=== PATIENT | female | born 1970 | race African-American/Black ===

== ENCOUNTER 2018-01-03 18:12 | Emergency (ER) | payer OTHER ==
[2018-01-03 18:21] VITALS: BP 121/80; PULSE 99; TEMP 97.3; BMI 33.6
--- NOTE | 2018-01-03 18:21 | PDOC ---
Rapid Medical Evaluation Chief Complaint: Rash Medical Evaluation: Allergies Allergy/AdvReac Type Severity Reaction Status Date / Time No Known Allergies Allergy Verified 01/03/18 18:15 01/03/18 18:20 The patient presents with a chief complaint of: buttock irritation due to abscesses I have performed a brief in-person evaluation of this patient; Pertinent physical exam findings: ambulatory, in no respiratory distress I have ordered the following: abcess, no orders. The patient will proceed to the ED for further evaluation.
--- NOTE | 2018-01-03 19:05 | PDOC ---
History of Present Illness - General Chief Complaint: Rash Stated Complaint: RASH Time Seen by Provider: 01/03/18 18:53 History Source: Patient Exam Limitations: No Limitations - History of Present Illness Initial Comments: 01/03/18 18:54 Patient is a [obese 47-year-old female who presents with painful lesions to right lower buttock. Patient reports one week ago she went to the gym and sat on the toilet without covering it also purchased a pair of pants that she did not wash prior to wearing. Does not have a history of herpes. Painful area started several days after these episodes. ] Past Medical History: [Denies]. Allergies: No known allergies Medications: [None] Family History: Non-contributory Social History: Denies smoking, alcohol use, or IVDU Review of Systems GENERAL/CONSTITUTIONAL: [No fever or chills. No weakness. No weight change.] HEAD, EYES, EARS, NOSE AND THROAT: [No change in vision. No ear pain or discharge. No sore throat. ] CARDIOVASCULAR: [No chest pain or shortness of breath.] RESPIRATORY: [No cough, wheezing, or hemoptysis.] GASTROINTESTINAL: [No nausea, vomiting, diarrhea or constipation. No rectal bleeding.] GENITOURINARY: [No dysuria, frequency, or change in urination.] MUSCULOSKELETAL: [No joint or muscle swelling or pain. No neck or back pain.] SKIN AND BREASTS: [No rash or easy bruising.] NEUROLOGIC: [No headache, vertigo, loss of consciousness, or loss of sensation.] PSYCHIATRIC: [No depression or anxiety.] ENDOCRINE: [No increased thirst. No abnormal weight change.] HEMATOLOGIC/LYMPHATIC: [No anemia, easy bleeding, or history of blood clots.] ALLERGIC/IMMUNOLOGIC: [No hives or skin allergy. No latex allergy.] Physical Exam: GENERAL: [The patient is awake, alert, and fully oriented, in no acute distress. ] EYES: [Pupils equal, round and reactive to light, extraocular movements intact, sclera anicteric, conjunctiva clear.] ENT: [Ears normal, nares patent, oropharynx clear without exudates. Moist mucous membranes. No uvula deviation] NECK: [Normal range of motion, supple without lymphadenopathy, JVD, or masses.] LUNGS: [Breath sounds equal, clear to auscultation bilaterally. No wheezes, and no crackles.] HEART: [Regular rate and rhythm, normal S1 and S2 without murmur, rub or gallop. ] ABDOMEN: [Soft, nontender, normoactive bowel sounds. No guarding, no rebound. No masses. No bruising or abrasions] RECTAL : [Guaiac negative, normal rectal tone.] MUSCULOSKELETAL: [Normal range of motion, no edema. No clubbing or cyanosis. No cords, erythema, or tenderness. No CVA Tenderness with fist.] NEUROLOGICAL: [Cranial nerves II through XII grossly intact. Normal speech, normal gait.] SKIN: [Warm, Dry, normal turgor, circular, nonraised, excoriated lesions and vesicles to right buttock] Past History - Past Medical History Allergies/Adverse Reactions: Allergies Allergy/AdvReac Type Severity Reaction Status Date / Time No Known Allergies Allergy Verified 01/03/18 18:15 Home Medications: Ambulatory Orders Ibuprofen [Motrin -] 600 mg PO QID #28 tablet 01/03/18 Valacyclovir HCl [Valtrex -] 1,000 mg PO BID #20 tablet 01/03/18 Asthma: (BRONCHITIS) COPD: No - Immunization History Immunization Up to Date: Yes - Suicide/Smoking/Psychosocial Hx Smoking History: Never smoked Have you smoked in the past 12 months: No Hx Alcohol Use: No Drug/Substance Use Hx: No Substance Use Type: Alcohol *Physical Exam - Vital Signs Last Vital Signs Temp Pulse Resp BP Pulse Ox 97.3 F L 99 H 18 121/80 98 01/03/18 18:15 01/03/18 18:15 01/03/18 18:15 01/03/18 18:15 01/03/18 18:15 Medical Decision Making - Medical Decision Making 01/03/18 19:48 A/P: Patient with lesions to right buttock highly suspicious for herpetic lesions, viral culture sent. Patient also reports that she was applying peroxide and 18 D ointment to area which may have caused further excoriation highly suspicious for herpetic lesions we will treat with Valtrex at this time, follow-up in one week for viral culture follow-up with dermatology. 01/04/18 15:33 *DC/Admit/Observation/Transfer Diagnosis at time of Disposition: Skin lesions - Discharge Dispostion Disposition: HOME Condition at time of disposition: Stable Admit: No - Prescriptions Prescriptions: Ibuprofen [Motrin -] 600 mg PO QID #28 tablet Valacyclovir HCl [Valtrex -] 1,000 mg PO BID #20 tablet - Referrals Referrals: Gabriel Mccann MD [Primary Care Provider] - Jovany Shukla [Non Staff, Medical] - - Patient Instructions Additional Instructions: No rubbing or scratching area, mild soap no fragrant soaps. Follow-up with dermatology Medication as prescribed, Motrin for pain if any increased redness swelling or signs of infection return to ER - Post Discharge Activity Forms/Work/School Notes: Back to Work
== END 2018-01-03 19:56 | disposition home or self-care (01) ==
LOC: JERFT 18:12
DX: L98.9 Disorder of the skin and subcutaneous tissue, unspecified (principal)
CPT/HCPCS: 99281-25

== ENCOUNTER 2018-08-23 11:45 | Emergency (ER) | payer OTHER ==
[2018-08-23 11:53] VITALS: BP 140/90; PULSE 88; TEMP 98.1; BMI 33.6
--- NOTE | 2018-08-23 13:00 | PDOC ---
History of Present Illness - General Chief Complaint: Cold Symptoms Stated Complaint: SOB, COUGH Time Seen by Provider: 08/23/18 12:42 History Source: Patient Exam Limitations: No Limitations - History of Present Illness Initial Comments: 08/23/18 12:57 HISTORY OF PRESENT ILLNESS: 48-year-old woman without significant medical history presents emergency Department with 3 weeks of sore throats, nasal congestion, dry unproductive cough. Patient denies having any fevers or chills. Patient believes she has a bronchitis and is requesting antibiotics at this time. 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 She denies chest pain, shortness of breath, abdominal pain, nausea, vomiting. No recent travel. PAST MEDICAL HISTORY: Denies past medical history SURGICAL HISTORY: Denies ALLERGIES: No known drug allergies REVIEW OF SYSTEMS General/Constitutional: Denies fever or chills. Denies weakness, weight change. HEENT: Denies change in vision. Denies ear pain or discharge. Denies sore throat. Cardiovascular: Denies chest pain or shortness of breath. Respiratory: Dry unproductive cough. Denies wheezing, or hemoptysis. Gastrointestinal: Denies nausea, vomiting, diarrhea or constipation. Denies rectal bleeding. Genitourinary: Denies dysuria, frequency, or change in urination. Musculoskeletal: Denies joint or muscle swelling or pain. Denies neck or back pain. Skin and breasts: Denies rash or easy bruising. Neurologic: Denies headache, vertigo, loss of consciousness, or loss of sensation. Psychiatric: Denies depression or anxiety. Endocrine: Denies increased thirst. Denies abnormal weight change. Hematologic/Lymphatic: Denies anemia, easy bleeding, or history of blood clots. Allergic/Immunologic: Denies hives or skin allergy. Denies latex allergy. PHYSICAL EXAM General Appearance: Well-appearing, appropriately dressed. No apparent distress , no intoxication. HEENT: EOMI, PERRLA, normal ENT inspection, normal voice, TMs with retractions b /l, pharynx with cobblestoning in posterior. No conjunctival pallor. No photophobia, scleral icterus. Neck: Supple. Trachea midline. No tenderness, rigidity, carotid bruit, stridor , lymphadenopathy, or thyromegaly. Respiratory/Chest: Lungs CTAB. No shortness of breath, chest tenderness, respiratory distress, accessory muscle use. No crackles, rales, rhonchi, stridor , wheezing, dullness Cardiovascular: RRR. S1, S2. No JVD, murmur, bradycardia, tachycardia. Vascular Pulses: Dorsalis-Pedis (R): 2+, Dorsalis-Pedis (L): 2+ Gastrointestinal/Abdominal: Normal bowel sounds. Abdomen soft, non-distended. No tenderness or rebound tenderness. No organomegaly, pulsatile mass, guarding, hernia, hepatomegaly, splenomegaly. Lymphatic: No adenopathy, tenderness. Musculoskeletal/Extremities: Normal inspection. FROM of all extremities, normal capillary refill. Pelvis Stable. No CVA tenderness. No tenderness to extremities, pedal edema, swelling, erythema or deformity. Integumentary: Appropriate color, dry, warm. No cyanosis, erythema, jaundice or rash Neurologic: air quality manager II-XII intact. Fully oriented, alert. Appropriate mood/affect. Motor strength 5/5. No appreciable EOM palsy, facial droop or sensory deficit. Past History - Past Medical History Allergies/Adverse Reactions: Allergies Allergy/AdvReac Type Severity Reaction Status Date / Time No Known Allergies Allergy Verified 08/23/18 11:48 Home Medications: Ambulatory Orders Benzonatate [Tessalon Pearls -] 200 mg PO TID #42 cap 08/23/18 Phentermine HCl [Adipex-P] 37.5 mg PO ASDIR 08/23/18 Asthma: (BRONCHITIS) COPD: No - Immunization History Immunization Up to Date: Yes - Suicide/Smoking/Psychosocial Hx Smoking History: Never smoked Have you smoked in the past 12 months: No Hx Alcohol Use: No Drug/Substance Use Hx: No Substance Use Type: Alcohol *Physical Exam - Vital Signs Last Vital Signs Temp Pulse Resp BP Pulse Ox 98.1 F 88 22 H 140/90 100 08/23/18 11:51 08/23/18 11:51 08/23/18 11:51 08/23/18 11:51 08/23/18 11:51 ED Treatment Course - RADIOLOGY Radiology Studies Ordered: Category Date Time Status CHEST PA & LAT [RAD] Stat Radiology 08/23/18 12:52 Ordered Medical Decision Making - Medical Decision Making 08/23/18 13:19 A/P: 48-year-old woman without significant medical history with 3 weeks of upper respiratory symptoms Chest x-ray Reassess X-rays as read by Dr. Blackwell: No evidence of active pulmonary disease. Symptoms are consistent with upper respiratory infection. I will discharge patient home to continue with symptomatic treatment. I will add Tessalon Perles to help with cough. *DC/Admit/Observation/Transfer Diagnosis at time of Disposition: Upper respiratory infection Qualifiers: URI type: unspecified viral URI Qualified Code(s): J06.9 - Acute upper respiratory infection, unspecified - Discharge Dispostion Disposition: HOME Condition at time of disposition: Stable Decision to Admit order: No - Prescriptions Prescriptions: Benzonatate [Tessalon Pearls -] 200 mg PO TID #42 cap - Referrals Referrals: Gabriel Mccann MD [Primary Care Provider] - - Patient Instructions Printed Discharge Instructions: DI for Viral Upper Respiratory Infection -- Adult Additional Instructions: Rest, drink lots of fluids: Teas, water, soups, Pedialyte Saltwater gargles Steamy showers/seem to face break up mucus Avoid contact with others until fevers and cough resolved Lots of handwashing and good hygiene Continue [id number] medications for symptomatic relief Tylenol or Motrin for fever and pain Followup with private physician in one to 2 days as needed Return to emergency department for worsened symptoms, fevers, dehydration - Post Discharge Activity Forms/Work/School Notes: Back to Work
== END 2018-08-23 13:24 | disposition home or self-care (01) ==
LOC: JERFT 11:45
DX: J06.9 Acute upper respiratory infection, unspecified (principal); J40 Bronchitis, not specified as acute or chronic
CPT/HCPCS: 71046-TC-FY; 99281-25

== ENCOUNTER 2019-01-07 10:25 | Emergency (ER) | payer OTHER ==
[2019-01-07 10:39] VITALS: BP 123/76; PULSE 90; TEMP 98.3; BMI 37.5
[2019-01-07] MEDS ORDERED: ALBUTEROL SO4 2.5/IPRATROPIUM 0.5 INH SOL 3 ML VIAL.NEB. NEB ONE ×2 (11:15→11:18)
[2019-01-07] MEDS ORDERED: DEXAMETHASONE LIQUID 0.5 MG/5 ML 240 ML BULK BOTTLE PO ONE (11:15)
--- NOTE | 2019-01-07 11:15 | PDOC ---
History of Present Illness - General Chief Complaint: Cold Symptoms Stated Complaint: CHEST TIGHTNESS Time Seen by Provider: 01/07/19 10:51 Past History - Past Medical History Allergies/Adverse Reactions: Allergies Allergy/AdvReac Type Severity Reaction Status Date / Time No Known Allergies Allergy Verified 01/07/19 10:35 Home Medications: Ambulatory Orders Albuterol Sulfate Inhaler - [Ventolin HFA Inhaler -] 1 - 2 inh PO Q4H #1 inhaler 01/07/19 Methylprednisolone [Medrol Dose Hector] 4 mg PO ASDIR #21 tablet 01/07/19 Asthma: (BRONCHITIS) COPD: No - Immunization History Immunization Up to Date: Yes - Suicide/Smoking/Psychosocial Hx Smoking History: Never smoked Have you smoked in the past 12 months: No Hx Alcohol Use: No Drug/Substance Use Hx: No Substance Use Type: Alcohol *Physical Exam - Vital Signs Last Vital Signs Temp Pulse Resp BP Pulse Ox 98.3 F 90 18 123/76 99 01/07/19 10:36 01/07/19 10:36 01/07/19 10:36 01/07/19 10:36 01/07/19 10:36 Moderate Sedation - Procedure Monitoring Vital Signs: Procedure Monitoring Vital Signs Temperature 98.3 F 01/07/19 10:36 Pulse Rate 90 01/07/19 10:36 Respiratory Rate 18 01/07/19 10:36 Blood Pressure 123/76 01/07/19 10:36 O2 Sat by Pulse Oximetry (%) 99 01/07/19 10:36 *DC/Admit/Observation/Transfer Diagnosis at time of Disposition: Acute bronchitis Qualifiers: Bronchitis organism: unspecified organism Qualified Code(s): J20.9 - Acute bronchitis, unspecified - Discharge Dispostion Disposition: HOME Condition at time of disposition: Stable Decision to Admit order: No - Referrals Referrals: Gabriel Mccann MD [Primary Care Provider] - - Patient Instructions Printed Discharge Instructions: DI for Acute Bronchitis Additional Instructions: You have bronchitis Please use the inhaler every 4 hours for the next week to help with your cough. Take the Medrol Dose pack as prescribed Please follow up with your primary care doctor in 1 week if your symptoms are not improving. Return to the emergency department if you have fevers, chills, worsening cough, chest pain, worsening shortness of breath or if you have any changes in your symptoms. - Post Discharge Activity Forms/Work/School Notes: Back to Work
[2019-01-07] MEDS ORDERED: DEXAMETHASONE SOD PHOSPHATE 10 MG/1 ML VIAL ONE (11:18)
--- NOTE | 2019-01-07 17:15 | EKG ---
Test Reason : Blood Pressure : / mmHG Vent. Rate : 085 BPM Atrial Rate : 085 BPM P-R Int : 132 ms QRS Dur : 086 ms QT Int : 352 ms P-R-T Axes : 037 032 016 degrees QTc Int : 418 ms NORMAL SINUS RHYTHM NORMAL ECG WHEN COMPARED WITH ECG OF 03-AUG-2016 09:43, NO SIGNIFICANT CHANGE WAS FOUND Confirmed by MD MEHREEN, TENZIN ([id number]) on 01/07/2019 5:15:35 PM Referred By: Confirmed By:TENZIN VERDE MD
== END 2019-01-07 12:09 | disposition home or self-care (01) ==
LOC: JERFT 10:25
PROC: 3E0F7GC Introduction of Other Therapeutic Substance into Respiratory Tract, Via Natural or Artificial Opening (ICD-10-PCS; principal; 2019-01-07)
DX: J20.9 Acute bronchitis, unspecified (principal)
CPT/HCPCS: 93005; 93010; 94640; 99281-25

== ENCOUNTER 2019-09-08 10:43 | Emergency (ER) | payer OTHER ==
[2019-09-08 10:53] VITALS: BP 130/87; PULSE 77; TEMP 97.9; BMI 37.2
--- NOTE | 2019-09-08 11:41 | PDOC ---
History of Present Illness - General Chief Complaint: Sore Throat Stated Complaint: DIFFICULTY BREATHING Time Seen by Provider: 09/08/19 11:11 History Source: Patient Exam Limitations: Clinical Condition - History of Present Illness Initial Comments: 09/08/19 11:37 Patient with past medical history of bronchitis present with complaint of one- week history of cold symptoms with nasal congestion, runny nose and now with 3- day history of persistent dry cough, intermittent chest tightness and mild body aches. Patient reported using albuterol inhaler yesterday which helped with chest tightness. Reported no chest tightness now. 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 Denies fever, chills. Denies sick contacts or recent travel Is this a multiple visit Asthma Patient?: No Timing/Duration: 1 week Past History - Past Medical History Allergies/Adverse Reactions: Allergies Allergy/AdvReac Type Severity Reaction Status Date / Time No Known Allergies Allergy Verified 09/08/19 10:53 Home Medications: Ambulatory Orders Albuterol Sulfate Inhaler - [Ventolin HFA Inhaler -] 1 - 2 inh PO Q4H #1 inhaler 01/07/19 Benzonatate [Tessalon Pearls -] 100 mg PO TID PRN #21 capsule 09/08/19 Ipratropium Drew 2 spray NS BID PRN #1 spray 09/08/19 Methylprednisolone [Medrol Dose Hector] 4 mg PO ASDIR #21 tablet 09/08/19 Montelukast Na [Singulair -] 10 mg PO HS #7 tablet 09/08/19 Asthma: (BRONCHITIS) COPD: No - Immunization History Immunization Up to Date: Yes - Psycho Social/Smoking Cessation Hx Smoking History: Never smoked Have you smoked in the past 12 months: No Hx Alcohol Use: Yes Drug/Substance Use Hx: No Substance Use Type: Alcohol Review of Systems - Review of Systems Able to Perform ROS?: Yes Is the patient limited Dutch proficient: No Constitutional: Yes: Malaise. No: Chills, Fever HEENTM: Yes: Symptoms Reported, See HPI, Nose Congestion. No: Eye Pain, Blurred Vision, Tearing, Recent change in vision, Double Vision, Cataracts, Ear Pain, Ocular Prothesis, Ear Discharge, Nose Pain, Tinnitus, Nose Bleeding, Hearing Loss, Throat Pain, Throat Swelling, Mouth Pain, Dental Problems, Difficulty Swallowing, Mouth Swelling, Other Respiratory: Yes: Symptoms reported, See HPI, Cough. No: Orthopnea, Shortness of Breath, SOB with Exertion, SOB at Rest, Stridor, Wheezing, Productive cough, Hemoptysis, Other Cardiac (ROS): No: Symptoms Reported, See HPI, Chest Pain, Edema, Irregular Heart Rate, Lightheadedness, Palpitations, Syncope, Chest Tightness, Other ABD/GI: No: Symptoms Reported, Nausea, Vomiting Musculoskeletal: No: Symptoms Reported Integumentary: No: Symptoms Reported All Other Systems: Reviewed and Negative *Physical Exam - Vital Signs Last Vital Signs Temp Pulse Resp BP Pulse Ox 97.9 F 77 16 130/87 99 09/08/19 10:49 09/08/19 10:49 09/08/19 10:49 09/08/19 10:49 09/08/19 10:49 - Physical Exam Comments: 09/08/19 11:36 GENERAL: Well developed, well nourished. Awake and alert. No acute distress. HEENT: Normocephalic, atraumatic. PERRLA, EOMI. No conjunctival pallor. Sclera are non-icteric. Moist mucous membranes. Oropharynx is clear. NECK: Supple. Full ROM. CARDIOVASCULAR: Regular rate and rhythm. No murmurs, rubs, or gallops. Distal pulses are 2+ and symmetric. PULMONARY: No evidence of respiratory distress. Lungs clear to auscultation bilaterally. No wheezing, rales or rhonchi. ABDOMINAL: Soft. Non-tender. Non-distended. No rebound or guarding. No organomegaly. Normoactive bowel sounds. MUSCULOSKELETAL Normal range of motion at all joints. SKIN: Warm and dry. Normal capillary refill. No rashes. NEUROLOGICAL: Alert, awake, appropriate. Gait is normal without ataxia. PSYCHIATRIC: Cooperative. Good eye contact. Appropriate mood General Appearance: Yes: Nourished, Appropriately Dressed. No: Apparent Distress ED Treatment Course - RADIOLOGY Radiology Studies Ordered: Category Date Time Status CHEST PA & LAT [RAD] Stat Radiology 09/08/19 11:30 Ordered Medical Decision Making - Medical Decision Making 09/08/19 11:38 Patient with past medical history of bronchitis present with complaint of one- week history of cold symptoms with nasal congestion, runny nose and now with 3- day history of persistent dry cough, intermittent chest tightness , sore throat and mild body aches. Patient reported using albuterol inhaler yesterday which helped with chest tightness. Reported no chest tightness now. 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 Denies fever, chills. Denies sick contacts or recent travel Clinical exam unremarkable with normal lung exam and no pharyngeal erythema. Given patient complaint of sore throat and intermittent chest tightness, rapid strep ordered to rule out strep pharyngitis and chest x-ray ordered to rule out acute chest pathology. 09/08/19 12:03 Chest x-ray shows no acute infiltrate or pathology. Rapid strep negative. Patient symptoms likely viral URI and stable for discharge on Tessalon Perles as needed for cough with Medrol Hector for bronchospasm with Atrovent nasal spray for congestion as needed with PCP follow-up Discharge - Discharge Information Problems reviewed: Yes Clinical Impression/Diagnosis: Cough in adult Upper respiratory infection Qualifiers: URI type: unspecified URI Qualified Code(s): J06.9 - Acute upper respiratory infection, unspecified Condition: Stable Disposition: HOME - Admission No - Additional Discharge Information Prescriptions: Benzonatate [Tessalon Pearls -] 100 mg PO TID PRN #21 capsule PRN Reason: Cough Ipratropium Drew 2 spray NS BID PRN #1 spray PRN Reason: nasal congestion Methylprednisolone [Medrol Dose Hector] 4 mg PO ASDIR #21 tablet Montelukast Na [Singulair -] 10 mg PO HS #7 tablet - Follow up/Referral Referrals: Gabriel Mccann MD [Primary Care Provider] - - Patient Discharge Instructions Patient Printed Discharge Instructions: DI for Viral Upper Respiratory Infection -- Adult Additional Instructions: Your chest x-ray was normal and shows no pneumonia or bronchitis. Your strep was negative. symptoms likely caused upper respiratory infection. Take prescribed medication as prescribed. Increase fluid intake. Follow-up with primary care as needed - Post Discharge Activity Work/Back to School Note: Back to Work
== END 2019-09-08 12:14 | disposition home or self-care (01) ==
LOC: JERFT 10:43
DX: J06.9 Acute upper respiratory infection, unspecified (principal)
CPT/HCPCS: 71046-TC-FY; 87070; 87880; 99282-25

== ENCOUNTER 2019-10-06 10:49 | Emergency (ER) | payer OTHER ==
[2019-10-06 10:55] VITALS: BMI 38.9
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
[2019-10-06 12:48] VITALS: BP 123/78; PULSE 79; TEMP 98.4
== END 2019-10-06 12:40 | disposition home or self-care (01) ==
LOC: JERFT 10:49
DX: S16.1XXA Strain of muscle, fascia and tendon at neck level, initial encounter (principal); V49.59XA Passenger injured in collision with other motor vehicles in traffic accident, initial encounter; Y92.414 Local residential or business street as the place of occurrence of the external cause; Y93.89 Activity, other specified; Y99.8 Other external cause status
CPT/HCPCS: 73610-TC-LT-FY; 73630-TC-LT; 99281-25

== ENCOUNTER 2020-01-05 18:11 | Emergency (ER) | payer OTHER ==
[2020-01-05 19:08] VITALS: BP 141/87; PULSE 81; TEMP 97.9; BMI 37.2
--- NOTE | 2020-01-05 19:08 | PDOC ---
Rapid Medical Evaluation Chief Complaint: Cold Symptoms Time Seen by Provider: 01/05/20 19:04 Medical Evaluation: Allergies Allergy/AdvReac Type Severity Reaction Status Date / Time No Known Allergies Allergy Verified 09/08/19 10:53 01/05/20 19:04 I have performed a brief in-person evaluation of this patient. The patient presents with a chief complaint of: malaise w/ uri sxs x 4 days. No recent travel or known sick contacts Pertinent physical exam findings:stable I have ordered the following: nothing The patient will proceed to the ED for further evaluation Discharge Disposition - Diagnosis URI (upper respiratory infection) Qualifiers: URI type: unspecified viral URI Qualified Code(s): J06.9 - Acute upper respiratory infection, unspecified - Referrals - Patient Instructions - Post Discharge Activity
--- NOTE | 2020-01-05 20:34 | PDOC ---
History of Present Illness - General Chief Complaint: Cold Symptoms Stated Complaint: COUGH/RUNNY NOSE/BODY ACHE AND THROAT Time Seen by Provider: 01/05/20 19:04 - History of Present Illness Initial Comments: 01/05/20 20:32 49-year-old female with a past medical history of asthma presents for evaluation of flulike symptoms x4 days Past History - Past Medical History Allergies/Adverse Reactions: Allergies Allergy/AdvReac Type Severity Reaction Status Date / Time No Known Allergies Allergy Verified 01/05/20 19:04 Home Medications: Ambulatory Orders Albuterol Sulfate Inhaler - [Ventolin HFA Inhaler -] 1 - 2 inh PO Q4H #1 inhaler 01/07/19 Benzonatate [Tessalon Pearls -] 100 mg PO TID PRN #21 capsule 09/08/19 Ipratropium [place] 2 spray NS BID PRN #1 spray 09/08/19 Methylprednisolone [Medrol Dose Hector] 4 mg PO ASDIR #21 tablet 09/08/19 Montelukast Na [Singulair -] 10 mg PO HS #7 tablet 09/08/19 Ibuprofen [Motrin -] 600 mg PO TID #30 tablet 10/06/19 Albuterol Sulfate Inhaler - [Ventolin HFA Inhaler -] 1 - 2 inh PO Q4H #1 inhaler 01/05/20 Guaifenesin Dm [Mucinex Dm -] 1 tab PO BID #60 tab.er.12h 01/05/20 Asthma: (BRONCHITIS) COPD: No - Immunization History Immunization Up to Date: Yes - Psycho Social/Smoking Cessation Hx Smoking History: Never smoked Have you smoked in the past 12 months: No Information on smoking cessation initiated: No Hx Alcohol Use: No Drug/Substance Use Hx: No Substance Use Type: Alcohol Review of Systems - Review of Systems Constitutional: Yes: Chills, Fever, Malaise, Night Sweats HEENTM: Yes: Nose Congestion Respiratory: Yes: Cough *Physical Exam - Vital Signs Last Vital Signs Temp Pulse Resp BP Pulse Ox 97.9 F 81 17 141/87 99 01/05/20 19:04 01/05/20 19:04 01/05/20 19:04 01/05/20 19:04 01/05/20 19:04 - Physical Exam 01/05/20 20:33 GENERAL: The patient is awake, alert, and fully oriented, in no acute distress. HEAD: Normal with no signs of trauma. EYES: sclera anicteric, conjunctiva clear. ENT: Ears normal tympanic membranes normal oropharynx clear uvula midline NECK: Normal range of motion LUNGS: Breath sounds equal, clear to auscultation bilaterally. No wheezes, and no crackles. HEART: S1 and S2 without murmur, rub or gallop. ABDOMEN: Soft, nontender, normoactive bowel sounds. No guarding, no rebound. No masses. EXTREMITIES: Normal range of motion, no edema. No clubbing or cyanosis. No cords, erythema, or tenderness. NEUROLOGICAL: Cranial nerves II through XII grossly intact. PSYCH: Normal mood, normal affect. SKIN: Warm, Dry, normal turgor, no rashes or lesions noted. Medical Decision Making - Medical Decision Making 01/05/20 20:33 Supportive care for viral upper respiratory infection out of the window for Tamiflu. I have reviewed the pathophysiology with the patient. They are in agreement with the treatment plan all questions were answered to their satisfaction. Understanding for follow-up without fail was also conveyed to the patient. Again they are in agreement. Discharge - Discharge Information Problems reviewed: Yes Clinical Impression/Diagnosis: URI (upper respiratory infection) Qualifiers: URI type: unspecified viral URI Qualified Code(s): J06.9 - Acute upper respiratory infection, unspecified Condition: Stable Disposition: HOME - Admission No - Additional Discharge Information Prescriptions: Guaifenesin Dm [Mucinex Dm -] 1 tab PO BID #60 tab.er.12h Albuterol Sulfate Inhaler - [Ventolin HFA Inhaler -] 1 - 2 inh PO Q4H #1 inhaler - Follow up/Referral Referrals: Gabriel Mccann MD [Primary Care Provider] - - Patient Discharge Instructions Additional Instructions: Please take the Mucinex as directed. Return to the emergency room for worsening symptoms. Without fail please follow-up with your primary care physician in 1 to 2 days for further evaluation and treatment options. Tylenol and Motrin as directed for fever and body aches should you require this. - Post Discharge Activity Work/Back to School Note: Back to Work
== END 2020-01-05 20:38 | disposition home or self-care (01) ==
LOC: JERFT 18:11
DX: J06.9 Acute upper respiratory infection, unspecified (principal); B97.89 Other viral agents as the cause of diseases classified elsewhere; Z87.09 Personal history of other diseases of the respiratory system
CPT/HCPCS: 99282-25

== ENCOUNTER 2020-05-14 18:22 | Inpatient (IN) | payer OTHER ==
--- NOTE | 2020-05-14 18:30 | PDOC ---
Rapid Medical Evaluation Time Seen by Provider: 05/14/20 18:24 Medical Evaluation: Allergies Allergy/AdvReac Type Severity Reaction Status Date / Time No Known Allergies Allergy Verified 01/05/20 19:04 05/14/20 18:25 I have performed a brief in-person evaluation of this patient. CC: diffuse abdominal pain x1 week. Pain radiates to left flank. +undigested food vomitus. PE: LUQ tenderness with guarding. Orders: labs, urine, NS, maalox, pepcid Patient will proceed to ED for further evaluation. Discharge Disposition - Diagnosis LUQ abdominal pain - Referrals - Patient Instructions - Post Discharge Activity
[2020-05-14] MEDS ORDERED: SODIUM CHLORIDE 1,000 ML IV STA (18:31)
[2020-05-14] MEDS ORDERED: MAG HYDROX/AL HYDROX/SIMETH 30 ML UNIT-DOSE CUP PO ONE (18:31)
[2020-05-14] MEDS ORDERED: FAMOTIDINE 10 MG TABLET PO ONE (18:31)
[2020-05-14 18:38] VITALS: BMI 36.6
[2020-05-14] MEDS ORDERED: FAMOTIDINE 10 MG TABLET ONE (19:50)
[2020-05-14] MEDS ORDERED: MAG HYDROX/AL HYDROX/SIMETH 30 ML UNIT-DOSE CUP ONE (19:50)
--- NOTE | 2020-05-14 20:08 | PDOC ---
History of Present Illness - General Chief Complaint: Pain Stated Complaint: ABD PAIN Time Seen by Provider: 05/14/20 18:24 History Source: Patient Exam Limitations: No Limitations - History of Present Illness Initial Comments: 05/14/20 20:03 49-year-old female history of gastritis, 6 weeks ago started drinking a detox tea, 3 weeks ago had abdominal cramping with 2 episodes of nausea and 5 episodes of non bloody diarrhea which resolved without intervention. Today presents to ED complaining of general abdominal cramping, nausea, bloating, "heartburn sensation " x 2 days worse when laying down. Did not take any medication for the symptoms. Denies fever, chills, recent antibiotic use, recent travel, diarrhea, vomiting, urinary complaints, vaginal bleeding or discharge. Admits to drinking alcohol 3-4 times a week for the past 3 months. Denies drug use. ROS: as above PE: GENERAL: well-appearing, NAD HEAD: NCAT EYES: Pupils equal, round and reactive to light, sclera anicteric, conjunctiva clear ENT: pharynx: no erythema, no exudate, uvula midline NECK: supple CHEST: nontender RESP: clear, no w/r/r CARDIO: rrr, no m/g/r ABD: +BS, soft, minimal tenderness to palpation over midepigastric area, no rebound, no guarding BACK: no midline spinal ttp, no CVAT EXTREMITIES: Normal range of motion, no edema NEUROLOGICAL: Normal speech, normal gait SKIN: Warm, Dry Is this a multiple visit Asthma Patient?: No Past History - Medical History Allergies/Adverse Reactions: Allergies Allergy/AdvReac Type Severity Reaction Status Date / Time No Known Allergies Allergy Verified 05/14/20 18:34 Home Medications: Ambulatory Orders Albuterol Sulfate Inhaler - [Ventolin HFA Inhaler -] 1 - 2 inh PO Q4H #1 inhaler 01/07/19 Benzonatate [Tessalon Pearls -] 100 mg PO TID PRN #21 capsule 09/08/19 Ipratropium [place] 2 spray NS BID PRN #1 spray 09/08/19 Methylprednisolone [Medrol Dose Hector] 4 mg PO ASDIR #21 tablet 09/08/19 Montelukast Na [Singulair -] 10 mg PO HS #7 tablet 09/08/19 Ibuprofen [Motrin -] 600 mg PO TID #30 tablet 10/06/19 Albuterol Sulfate Inhaler - [Ventolin HFA Inhaler -] 1 - 2 inh PO Q4H #1 inhaler 01/05/20 Guaifenesin Dm [Mucinex Dm -] 1 tab PO BID #60 tab.er.12h 01/05/20 Asthma: (BRONCHITIS) COPD: No - Immunization History Immunization Up to Date: Yes - Psycho-Social/Smoking History Smoking History: Never smoked Have you smoked in the past 12 months: No Information on smoking cessation initiated: No - Substance Abuse Hx (Audit-C & DAST Scrn) How often the patient has a drink containing alcohol: Never Score: In Men: 4 or > Positive; In Women: 3 or > Positive: 0 Screen Result (Pos requires Nsg. Audit-10AR): Negative In the last yr the pt used illegal drug/Rx for NonMed reason: No Score: Yes response is considered Positive: 0 Screen Result (Positive result requires Nsg. DAST-10): Negative *Physical Exam - Vital Signs Last Vital Signs Temp Pulse Resp BP Pulse Ox 98.6 F 84 18 123/73 100 05/14/20 18:26 05/14/20 18:26 05/14/20 18:26 05/14/20 18:26 05/14/20 18:26 ED Treatment Course - LABORATORY CBC & Chemistry Diagram: 05/14/20 18:45 05/14/20 18:45 - Medications Given in the ED: ED Medications Discontinued Medications Generic Name Dose Route Start Last Admin Trade Name Freq PRN Reason Stop Dose Admin Al Hydroxide/Mg Hydroxide 30 ml 05/14/20 18:31 05/14/20 20:01 Mylanta Oral Suspension - PO 05/14/20 18:32 30 ml ONCE ONE Administration Famotidine 10 mg 05/14/20 18:31 05/14/20 20:01 Acid Paper Production Engineer PO 05/14/20 18:32 10 mg ONCE ONE Administration Medical Decision Making - Medical Decision Making 05/14/20 20:22 49-year-old female history of gastritis, 6 weeks ago started drinking a detox tea, 3 weeks ago had abdominal cramping with 2 episodes of nausea and 5 episodes of non bloody diarrhea which resolved without intervention. Today presents to ED complaining of general abdominal cramping, nausea, bloating, "heartburn sensation " x 2 days worse when laying down. Did not take any medication for the symptoms. Denies fever, chills, recent antibiotic use, recent travel, diarrhea, vomiting, urinary complaints, vaginal bleeding or discharge. Admits to drinking alcohol 3-4 times a week for the past 3 months. Denies drug use. 21:30 Green - ecg - nsr, HR 70, no st or tw changes reviewed labs and UA with patient AST 60 ALT 237 Alk phos 262 normal lipase Ordered Limited abdominal ultrasound Reassess 05/14/20 21:48 Patient feels better after p.o. Maalox and Pepcid Waiting abdominal ultrasound results Signed out to SOLAR DESIGN ENGINEER Mazin Discharge - Discharge Information Problems reviewed: Yes Clinical Impression/Diagnosis: LUQ abdominal pain Condition: Stable - Follow up/Referral Referrals: Gabriel Mccann MD [Primary Care Provider] - - Patient Discharge Instructions - Post Discharge Activity
[2020-05-14 20:18] LABS: BASO % 0.6 % (0-2.0); EOS % 1.4 % (0-4.5); HEMATOCRIT 38.6 % (32.4-45.2); HEMOGLOBIN 12.6 GM/dL (10.7-15.3); LYMPH % 20.4 % (8-40); MCH 29.3 pg (25.7-33.7); MCHC 32.6 g/dl (32.0-36.0); MEAN CELL VOLUME 89.9 fl (80-96); MEAN PLT VOLUME 9.4 fl (7.5-11.1); MONO % 10.1 % (3.8-10.2); NEUT % 67.5 % (42.8-82.8); PLATELET COUNT 250 K/MM3 (134-434); RBC 4.29 M/mm3 (3.60-5.2); WHITE BLOOD COUNT 7.7 K/mm3 (4.0-10.0)
[2020-05-14 20:23] LABS: HCG,QUALITATIVE URINE Negative
[2020-05-14 20:58] LABS: EPI CELLS >36 /uL (0-25.1); HYALINE CASTS 4 /uL (0-3.1); PH,URINE 5.5 (5.0-8.0); URINE APPEARANCE CLEAR; URINE BACTERIA 764 /uL (0-1359); URINE BILIRUBIN NEGATIVE (NEGATIVE); URINE COLOR YELLOW; URINE GLUCOSE (UA) NEGATIVE (NEGATIVE); URINE KETONE TRACE (NEGATIVE); URINE LEUK ESTERASE TRACE (NEGATIVE); URINE NITRITE NEGATIVE (NEGATIVE); URINE PROTEIN NEGATIVE (NEGATIVE); URINE RBC 10 /uL (0-23.9); URINE WBC 41 /uL (0-25.8)
[2020-05-14 21:12] LABS: ALBUMIN 3.4 g/dl (3.4-5.0); BILIRUBIN,TOTAL 0.8 mg/dL (0.2-1); BLOOD UREA NITROGEN 14.7 mg/dL (7-18); CALCIUM 9.4 mg/dL (8.5-10.1); CREATININE 0.9 mg/dL (0.55-1.3); POTASSIUM 3.9 mmol/L (3.5-5.1); TOT PROT 7.6 g/dl (6.4-8.2)
--- NOTE | 2020-05-14 22:31 | PDOC ---
*Physical Exam - Vital Signs Last Vital Signs Temp Pulse Resp BP Pulse Ox 98.6 F 84 18 123/73 100 05/14/20 18:26 05/14/20 18:26 05/14/20 18:26 05/14/20 18:26 05/14/20 18:26 - Physical Exam General Appearance: Yes: Appropriately Dressed. No: Apparent Distress Gastrointestinal/Abdominal: positive: Normal Bowel Sounds, Tender (Epigastrium), Soft, Other (Negative Porter sign.). negative: Guarding ED Treatment Course - LABORATORY CBC & Chemistry Diagram: 05/14/20 18:45 05/14/20 18:45 - ADDITIONAL ORDERS Additional order review: Laboratory Results 05/14/20 05/14/20 18:45 18:45 Sodium 140 Potassium 3.9 Chloride 102 Carbon Dioxide 28 Anion Gap 10 BUN 14.7 Creatinine 0.9 Est GFR (CKD-EPI)AfAm 87.63 Est GFR (CKD-EPI)NonAf 75.61 Random Glucose 70 L Calcium 9.4 Total Bilirubin 0.8 AST 60 H ALT 237 H Alkaline Phosphatase 262 H Total Protein 7.6 Albumin 3.4 Lipase 139 Urine Color Yellow Urine Appearance Clear Urine pH 5.5 Ur Specific [place] 1.027 Urine Protein Negative Urine Glucose (UA) Negative Urine Ketones Trace H Urine Blood Negative Urine Nitrite Negative Urine Bilirubin Negative Urine Urobilinogen 1.0 Ur Leukocyte Esterase Trace Urine WBC (Auto) 41 Urine RBC (Auto) 10 Urine Casts (Auto) 4 U Epithel Cells (Auto) >36 Urine Bacteria (Auto) 764 Urine HCG, Qual Negative 05/14/20 18:45 RBC 4.29 MCV 89.9 MCHC 32.6 RDW 15.0 MPV 9.4 Neutrophils % 67.5 Lymphocytes % 20.4 Monocytes % 10.1 Eosinophils % 1.4 Basophils % 0.6 - Medications Given in the ED: ED Medications Discontinued Medications Generic Name Dose Route Start Last Admin Trade Name Freq PRN Reason Stop Dose Admin Al Hydroxide/Mg Hydroxide 30 ml 05/14/20 18:31 05/14/20 20:01 Mylanta Oral Suspension - PO 05/14/20 18:32 30 ml ONCE ONE Administration Famotidine 10 mg 05/14/20 18:31 05/14/20 20:01 Acid Jitney Driver PO 05/14/20 18:32 10 mg ONCE ONE Administration ED Progress Note - Progress Note Progress Note: 05/14/20 22:33 Received signout from LISANDRO Green. Briefly this a 49-year-old woman with history of gastritis has had 3 weeks of abdominal cramping with 2 episodes of nausea and multiple episodes of nonbloody diarrhea which spontaneously resolved. Patient with continued abdominal cramping, nausea and bloating over the past 2 days which is worse while lying down. Laboratory testing notable for elevated AST, ALT and alk phos with a normal lipase and bilirubin. EKG sinus rhythm with rate of 70 without ischemic changes noted. Patient improved after receiving Pepcid and Maalox and is currently pending ultrasound for disposition. Medical Decision Making - Medical Decision Making 05/14/20 22:43 Ultrasound as read by Dr. Paul: Cholelithiasis is seen. There is mild diffuse gallbladder wall thickening-? Possible acute versus chronic cholecystitis. There is no definite gallbladder over distention or pericholecystic fluid. No definite biliary tract dilatation is identified. The main pancreatic duct appears slightly dilated. MRI/MRCP evaluation is suggested. No obvious hepatic pathology is identified. Patient with continued abdominal pain which she currently rates 8/10 located in the epigastric region. Mild tenderness upon palpation without guarding present. Patient has mildly elevated LFTs combined with ultrasound read above admit the patient to the hospitalist service for further GI evaluation. I will defer antibiotic treatment at this time as patient has no WBC count is currently afebr ile. Would have low threshold to initiate antibiotics patient's condition were to worsen. 05/14/20 23:34 Case d/w Dr. Silver of the hospitalist service. Patient to be admitted under Dr. Barahona. Discharge - Discharge Information Problems reviewed: Yes Clinical Impression/Diagnosis: Gallstones Condition: Fair - Admission Yes - Follow up/Referral Referrals: Gabriel Mccann MD [Primary Care Provider] - - Patient Discharge Instructions - Post Discharge Activity
[2020-05-14] MEDS ORDERED: ONDANSETRON 4 MG/2 ML VIAL IVPUSH ONE (22:45)
[2020-05-14] MEDS ORDERED: morphine CARPU-JECT 4 MG/1 ML DISP.SYRIN IVPUSH ONE (22:45)
[2020-05-14] MEDS ORDERED: morphine SULFATE 4 MG/ML VIAL ONE (22:52)
--- NOTE | 2020-05-14 23:14 | PN ---
Teaching Attending Note Name of Resident: Js Medrano ATTENDING PHYSICIAN STATEMENT I saw and evaluated the patient. I reviewed the resident's note and discussed the case with the resident. I agree with the resident's findings and plan as documented. SUBJECTIVE: Patient is a 49 year old woman with a PMH of Asthma, Partial hysterectomy and Gastritis presenting with 3 weeks of abdominal cramping with 2 episodes of nausea and 5 episodes of non bloody diarrhea which resolved without intervention. Six weeks ago she started drinking a detox tea and other alternative medical products for weight loss. Now has general abdominal cramping, nausea, bloating, "heartburn sensation " for 2 days which is worse when laying down. Did not take any medication for the symptoms. Denies fever, chills, recent antibiotic use, recent travel, dysuria, frequency, urgency, vaginal bleeding or abnormal vaginal discharge. Admits to drinking alcohol 3-4 times a week for the past 3 months. Denies tobacco or illicit drug use. No sick contacts. Patient has a family history of HTN in mother. OBJECTIVE: Alert Vital Signs Period Temp Pulse Resp BP Sys/Travis Pulse Ox Last 24 Hr 98.6 F 84 18 123/73 100 HEENT: No Jaundice, eye redness or discharge, PERRLA, EOMI. Normocephalic, atraumatic. External ears are normal and hearing is grossly intact. No nasal discharge. Neck: Supple, nontender. No palpable adenopathy or thyromegaly. No JVD Chest: Good effort. Clear to auscultation and percussion. Heart: Regular. No S3, rub or murmur Abdomen: Not distended, soft, epigastric tenderness and no HSM. No rebound or guarding. Normal bowel sounds. Ext: Peripheral pulses intact. No leg edema. Skin: Warm and dry. No petechiae, rash or ecchymosis. Neuro: Alert. Oriented x3. CN 2-12 grossly intact. Sensation grossly intact in all four extremities and DTR are symmetric. Psych: Appropriate mood and affect. Good insight. Abnormal Lab Results 05/14/20 05/14/20 18:45 18:45 Random Glucose 70 L AST 60 H ALT 237 H Alkaline Phosphatase 262 H Urine Ketones Trace H ASSESSMENT AND PLAN: 1. Rule out Cholecystitis - Ultrasound as read by Dr. Paul - "Cholelithiasis is seen. There is mild diffuse gallbladder wall thickening-? Possible acute versus chronic cholecystitis. There is no definite gallbladder over distention or pericholecystic fluid. No definite biliary tract dilatation is identified. The main pancreatic duct appears slightly dilated. MRI/MRCP evaluation is suggested. No obvious hepatic pathology is identified." Will get CXR, CT abdomen/pelvis with contrast tonight and MRCP tomorrow. Has pyuria and trace leukocyte esterase. Viral testing for COVID-19 ordered and patient placed on airborne, droplet and contact isolation. ER staff prescribed IV Morphine, Pepcid, Mylanta, Zofran and IV NS for the patient. EKG shows NSR at 70/minute and QTc [address]-T wave changes. Initial troponin is negative. Will get hepatitis serology, trend LFTs, keep her NPO, treat patient with IV Protonix, IV LR, IV Rocephin and Flagyl and consult GI and Surgery. Will continue comprehensive care for all of patients comorbid conditions. 2. DVT prophylaxis - SCD 3. Advance directives - Full code
[2020-05-15] MEDS ORDERED: SODIUM CHLORIDE 1,000 ML IV SCH (03:45)
[2020-05-15] MEDS ORDERED: CEFTRIAXONE 1 GM/50 ML BAG ONE ×2 (03:46→10:10)
[2020-05-15] MEDS: CEFTRIAXONE 1 GM in DEXTROSE 5%-WATER - 50 ML IVPB SCH ×2 (04:32→10:45)
[2020-05-15] MEDS ORDERED: MORPHINE SULFATE 2 MG/ML VIAL IVPUSH PRN (07:52)
--- NOTE | 2020-05-15 08:13 | HP ---
CHIEF COMPLAINT: Right-sided abd pain PCP: HISTORY OF PRESENT ILLNESS: 49F w/ h/o partial hysterectomy(d/t prolapsed urethra) presenting with complaint of worsening of multiple weeks of intermittent Right-sided upper abdominal pain. First episode of RUQ was related to eating lasagna at an Aunt's wake in late March. She had RUQ pain w/a NV, which she experienced pain for several days. She had attributed it to food poisoning. Has had another mild episode of RUQ abdominal pain a week later. Today she complaint of persistent R-sided abd pain x3d, no fever/chills/nausea. Has an appetite. Had rapidly lost 35lbs in 3- 4months through a Pherntermine prescription a few years prior but slowly regained the weight. Has been drinking CBD Tea, as part of a body cleanse routine. The CBD tea tends to promoted loose BMs. ER course was notable for: (1) Tmax 98.6, WBC 7.7 (2) Tbil 0.8, AST/ALT 60/237; lipase 139 (3) US RUQ: multiple mobile gallstones, midl diffuse GB wall thickening, neg pericholecystic fluid, CBD ~0.5cm, PD ~2.7mm (4) sp zofran, mylanta, NS x1L, morphine 4mg Recent Travel: denies PAST MEDICAL HISTORY: partial hysterectomy PAST SURGICAL HISTORY: partial hysterectomy Social History: Smoking: denies Alcohol: 1-2x/weekly Drugs: denies Allergies No Known Allergies Allergy (Verified 05/14/20 18:34) HOME MEDICATIONS: REVIEW OF SYSTEMS CONSTITUTIONAL: weight loss and weight gain Absent: fever, chills, diaphoresis, generalized weakness, malaise, loss of appetite HEENT: Absent: rhinorrhea, nasal congestion, throat pain, throat swelling, difficulty swallowing, mouth swelling, ear pain, eye pain, visual changes CARDIOVASCULAR: Absent: chest pain, syncope, palpitations, irregular heart rate, lightheadedness , peripheral edema RESPIRATORY: Absent: cough, shortness of breath, dyspnea with exertion, orthopnea, wheezing, stridor, hemoptysis GASTROINTESTINAL: Right-side abd pain Absent: abdominal distension, nausea, vomiting, diarrhea, constipation, melena, hematochezia GENITOURINARY: Absent: dysuria, frequency, urgency, hesitancy, hematuria, flank pain, genital pain MUSCULOSKELETAL: Absent: myalgia, arthralgia, joint swelling, back pain, neck pain SKIN: Absent: rash, itching, pallor HEMATOLOGIC/IMMUNOLOGIC: Absent: easy bleeding, easy bruising, lymphadenopathy, frequent infections ENDOCRINE: Absent: unexplained weight gain, unexplained weight loss, heat intolerance, cold intolerance NEUROLOGIC: Absent: headache, focal weakness or paresthesias, dizziness, unsteady gait, seizure, mental status changes, bladder or bowel incontinence PSYCHIATRIC: Absent: anxiety, depression, suicidal or homicidal ideation, hallucinations. PHYSICAL EXAMINATION Vital Signs - 24 hr 05/14/20 05/15/20 05/15/20 18:26 00:42 06:00 Temperature 98.6 F 98.5 F 98.6 F Pulse Rate 84 Pulse Rate [ 68 80 Left] Respiratory 18 17 15 Rate Blood Pressure 123/73 Blood Pressure 127/63 124/89 [Right Arm] O2 Sat by Pulse 100 100 97 Oximetry (%) GENERAL: Awake, alert, and fully oriented. Obese HEAD: NC/AT EYES: sclera anicteric, conjunctiva clear. EARS, NOSE, THROAT: oropharynx clear without exudates. Moist mucous membranes. NECK: supple without lymphadenopathy, JVD, or masses. LUNGS: Breath sounds equal, clear to auscultation bilaterally. No wheezes, and no crackles. No accessory muscle use. HEART: Regular rate and rhythm, normal S1 and S2 without murmur, rub or gallop. ABDOMEN: Soft, ND, TTP of RUQ, +Porter's, neg rebound MUSCULOSKELETAL: Normal range of motion at all joints. No bony deformities or tenderness. No CVA tenderness. UPPER EXTREMITIES: 2+ pulses, warm, well-perfused. No cyanosis. No clubbing. No peripheral edema. LOWER EXTREMITIES: 2+ pulses, warm, well-perfused. No calf tenderness. No peripheral edema. NEUROLOGICAL: Normal speech. Laboratory Results - last 24 hr 05/14/20 05/14/20 05/14/20 18:45 18:45 18:45 WBC 7.7 RBC 4.29 Hgb 12.6 Hct 38.6 MCV 89.9 MCH 29.3 MCHC 32.6 RDW 15.0 Plt Count 250 MPV 9.4 Absolute Neuts (auto) 5.2 Neutrophils % 67.5 Lymphocytes % 20.4 Monocytes % 10.1 Eosinophils % 1.4 Basophils % 0.6 Nucleated RBC % 0 Sodium 140 Potassium 3.9 Chloride 102 Carbon Dioxide 28 Anion Gap 10 BUN 14.7 Creatinine 0.9 Est GFR (CKD-EPI)AfAm 87.63 Est GFR (CKD-EPI)NonAf 75.61 POC Glucometer Random Glucose 70 L Calcium 9.4 Total Bilirubin 0.8 AST 60 H ALT 237 H Alkaline Phosphatase 262 H Total Protein 7.6 Albumin 3.4 Lipase 139 Urine Color Yellow Urine Appearance Clear Urine pH 5.5 Ur Specific [place] 1.027 Urine Protein Negative Urine Glucose (UA) Negative Urine Ketones Trace H Urine Blood Negative Urine Nitrite Negative Urine Bilirubin Negative Urine Urobilinogen 1.0 Ur Leukocyte Esterase Trace Urine WBC (Auto) 41 Urine RBC (Auto) 10 Urine Casts (Auto) 4 U Epithel Cells (Auto) >36 Urine Bacteria (Auto) 764 Urine HCG, Qual Negative 05/15/20 07:59 WBC RBC Hgb Hct MCV MCH MCHC RDW Plt Count MPV Absolute Neuts (auto) Neutrophils % Lymphocytes % Monocytes % Eosinophils % Basophils % Nucleated RBC % Sodium Potassium Chloride Carbon Dioxide Anion Gap BUN Creatinine Est GFR (CKD-EPI)AfAm Est GFR (CKD-EPI)NonAf POC Glucometer 82 Random Glucose Calcium Total Bilirubin AST ALT Alkaline Phosphatase Total Protein Albumin Lipase Urine Color Urine Appearance Urine pH Ur Specific [place] Urine Protein Urine Glucose (UA) Urine Ketones Urine Blood Urine Nitrite Urine Bilirubin Urine Urobilinogen Ur Leukocyte Esterase Urine WBC (Auto) Urine RBC (Auto) Urine Casts (Auto) U Epithel Cells (Auto) Urine Bacteria (Auto) Urine HCG, Qual ASSESSMENT/PLAN: 49F w/ h/o partial hysterectomy(d/t prolapsed urethra) presenting with complaint of worsening of multiple weeks of intermittent Right-sided upper abdominal pain. Physical exam and US concerning for biliary pathology. Subsequent CT imaging showing possible acute cholecystitis. Admitted for acute cholecystitis w/ possible CBD stone # RUQ pain --probably likely acute cholecystitis, possible choledochcholithiasis > Tmax 98.6, WBC 7.7 > Tbil 0.8, AST/ALT 60/237; lipase 139 > US RUQ: multiple mobile gallstones, midl diffuse GB wall thickening, neg pericholecystic fluid, CBD ~0.5cm, PD ~2.7mm > CT A/P: IMG ON-CALL:: mild basilar atelectasis, Cholelithiasis in the GB neck w/ mod GB distention and abn GB wall thickening and pericholecystic fluid. Mild dilation of the CBD. Mild nonspecific wall thickening of the hepatic flexure of the colon, mostly likely due to mild secondary infectious or inflammatory colitis. Diverticulosis w/o diverticulitis > MRCP --pending - abx regimen: ceftriaxone + flagyl - pain regimen: morphine 2mg q4 - surgery consult(Ann): - Gi consult(Sabino): FEN - NS @100 - NPO DVT PPX - SCDs Family Medical History Family History: Unremarkable Visit type - Emergency Visit Emergency Visit: Yes ED Registration Date: 05/14/20 Care time: The patient presented to the Emergency Department on the above date and was hospitalized for further evaluation of their emergent condition. - New Patient This patient is new to me today: Yes Date on this admission: 05/15/20 - Critical Care Critical Care patient: No ATTENDING PHYSICIAN STATEMENT I saw and evaluated the patient. I reviewed the resident's note and discussed the case with the resident. I agree with the resident's findings and plan as documented. SUBJECTIVE: OBJECTIVE: ASSESSMENT AND PLAN:
[2020-05-15] MEDS ORDERED: PANTOPRAZOLE SODIUM 40 MG VIAL ONE (09:35)
[2020-05-15 09:43] LABS: HEMATOCRIT 37.3 % (32.4-45.2); HEMOGLOBIN 12.1 GM/dL (10.7-15.3); MCH 29.4 pg (25.7-33.7); MCHC 32.5 g/dl (32.0-36.0); MEAN CELL VOLUME 90.3 fl (80-96); MEAN PLT VOLUME 9.1 fl (7.5-11.1); PLATELET COUNT 192 K/MM3 (134-434); RBC 4.14 M/mm3 (3.60-5.2); RDW 15.2 % (11.6-15.6)
[2020-05-15] MEDS ORDERED: PANTOPRAZOLE SODIUM 40 MG VIAL IVPUSH SCH (10:00)
[2020-05-15] MEDS ORDERED: ENOXAPARIN NA (PORCINE) 40 MG/0.4 ML DISP.SYRIN SQ SCH (10:00)
[2020-05-15 10:11] LABS: ALBUMIN 2.9 g/dl (3.4-5.0); BILIRUBIN,TOTAL 0.8 mg/dL (0.2-1); BLOOD UREA NITROGEN 10.4 mg/dL (7-18); CALCIUM 8.6 mg/dL (8.5-10.1); CREATININE 0.7 mg/dL (0.55-1.3); POTASSIUM 3.9 mmol/L (3.5-5.1); TOT PROT 6.5 g/dl (6.4-8.2)
--- NOTE | 2020-05-15 10:23 | CONSULT ---
- Consultation REQUESTING PROVIDER: CONSULT REQUEST: We have been asked to surgically evaluate this patient for acute cholecystitis PCP:Marlen Scanlon MD HISTORY OF PRESENT ILLNESS: PMHx: none PSHx: DESTINEE Home Medications Medication Instructions Recorded NK [No Known Home Medication] 05/15/20 Allergies Allergy/AdvReac Type Severity Reaction Status Date / Time No Known Allergies Allergy Verified 05/14/20 18:34 REVIEW OF SYSTEMS: CONSTITUTIONAL: Absent: fever, chills, diaphoresis, generalized weakness, malaise, loss of appetite, weight change CARDIOVASCULAR: Absent: chest pain, syncope, palpitations, irregular heart rate, lightheadedness, peripheral edema RESPIRATORY: Absent: cough, shortness of breath, dyspnea with exertion, wheezing, stridor, hemoptysis GASTROINTESTINAL: Absent: abdominal pain, abdominal distension, nausea, vomiting, diarrhea, constipation, melena, hematochezia GENITOURINARY: Absent: dysuria, frequency, urgency, hesitancy, hematuria, flank pain, genital pain MUSCULOSKELETAL: Absent: myalgia, arthralgia, joint swelling, back pain, neck pain SKIN: Absent: rash, itching, pallor HEMATOLOGIC/IMMUNOLOGIC: Absent: easy bleeding, easy bruising, lymphadenopathy NEUROLOGIC: Absent: headache, focal weakness, paresthesias, dizziness, unsteady gait, seizure, mental status changes, bladder or bowel incontinence PSYCHIATRIC: Absent: anxiety, depression, suicidal or homicidal ideation, hallucinations. PHYSICAL EXAM: GENERAL: Awake, alert, and fully oriented, in no acute distress. HEAD: Normal with no signs of trauma. EYES: PERRL, sclera anicteric, conjunctiva clear. NECK: Normal ROM, supple without lymphadenopathy, JVD, or masses. ABDOMEN: Soft, minimal RUQ tenderness, not distended, normoactive bowel sounds, no guarding, no rebound, no masses. No organomegaly. Small hernia at the umbilicus. MUSCULOSKELETAL: Normal ROM at all joints. No bony deformities or tenderness. No CVA tenderness. UPPER EXTREMITIES: 2+ pulses, warm, well-perfused. No cyanosis. Cap refill <2 seconds. No peripheral edema. LOWER EXTREMITIES: 2+ pulses, warm, well-perfused. No calf tenderness. No peripheral edema. NEUROLOGICAL: Normal speech, gait not observed. PSYCH: Cooperative. Good eye contact. Appropriate mood and affect. SKIN: Warm, dry, normal turgor, no rashes or lesions noted. Vital Signs Temperature 98.6 F 05/15/20 06:00 Pulse Rate 80 05/15/20 06:00 Respiratory Rate 15 05/15/20 06:00 Blood Pressure 124/89 05/15/20 06:00 O2 Sat by Pulse Oximetry (%) 97 05/15/20 06:00 Lab Results WBC 7.0 K/mm3 (4.0-10.0) 05/15/20 09:26 RBC 4.14 M/mm3 (3.60-5.2) 05/15/20 09:26 Hgb 12.1 GM/dL (10.7-15.3) 05/15/20 09:26 Hct 37.3 % (32.4-45.2) 05/15/20 09:26 MCV 90.3 fl (80-96) 05/15/20 09:26 MCHC 32.5 g/dl (32.0-36.0) 05/15/20 09:26 RDW 15.2 % (11.6-15.6) 05/15/20 09:26 Plt Count 192 K/MM3 (134-434) D 05/15/20 09:26 Sodium 140 mmol/L (136-145) 05/15/20 09:26 Potassium 3.9 mmol/L (3.5-5.1) 05/15/20 09:26 Chloride 107 mmol/L (98-107) 05/15/20 09:26 Carbon Dioxide 27 mmol/L (21-32) 05/15/20 09:26 Anion Gap 6 MMOL/L (8-16) L 05/15/20 09:26 BUN 10.4 mg/dL (7-18) 05/15/20 09:26 Creatinine 0.7 mg/dL (0.55-1.3) 05/15/20 09:26 Random Glucose 90 mg/dL (74-106) 05/15/20 09:26 Calcium 8.6 mg/dL (8.5-10.1) 05/15/20 09:26 Imaging w/u to date reviewed; reports and images; MRI results are pending IMP: acute cholecystitis PLAN: NPO/IVF/IVABS/US RUQ; will f/u and plan for lap eladio possible open 05/17/20 or 05/18/20 pending COVID status and results of the MRCP; d/w he patient in depth. Leland Juarez MD FACS
--- NOTE | 2020-05-15 15:00 | EKG ---
Test Reason : Blood Pressure : / mmHG Vent. Rate : 070 BPM Atrial Rate : 070 BPM P-R Int : 140 ms QRS Dur : 088 ms QT Int : 388 ms P-R-T Axes : 041 020 026 degrees QTc Int : 419 ms NORMAL SINUS RHYTHM NORMAL ECG WHEN COMPARED WITH ECG OF 07-JAN-2019 10:20, NO SIGNIFICANT CHANGE WAS FOUND Confirmed by TRUDY MOLINA MD ([id number]) on 05/15/2020 3:00:15 PM Referred By: Confirmed By:TRUDY MOLINA MD
[2020-05-15] MEDS ORDERED: DEXTROSE 50%-WATER - 25 GM/50 ML VIAL IVPUSH ONE (15:01)
[2020-05-15] MEDS ORDERED: DEXTROSE 50%-WATER 25 GM/50 ML DISP.SYRIN ONE (15:01)
--- NOTE | 2020-05-15 17:27 | PN ---
Progress Note, Physician Chief Complaint: No current complaints History of Present Illness: 49 year old Female with a history of partial hysterectomy (d/t prolapsed urethra) presenting with complaint of worsening of multiple weeks of intermittent Right-sided upper abdominal pain. Physical exam and US concerning for biliary pathology. Subsequent CT imaging showing possible acute cholecysti tis. Admitted for acute cholecystitis w/ possible CBD stone - Current Medication List Current Medications: Active Medications Ceftriaxone Sodium 1 gm/ (Dextrose) 50 mls @ 100 mls/hr IVPB DAILY [facility] Last Admin: 05/15/20 10:45 Dose: 100 mls/hr Documented by: Metronidazole (Flagyl 500mg Premixed Ivpb -) 500 mg in 100 mls @ 100 mls/hr IVPB Q8H-IV [facility] Last Admin: 05/15/20 09:51 Dose: 100 mls/hr Documented by: Sodium Chloride (Normal Saline -) 1,000 mls @ 100 mls/hr IV ASDIR [facility] Last Admin: 05/15/20 04:12 Dose: 100 mls/hr Documented by: Morphine Sulfate (Morphine Sulfate) 2 mg IVPUSH Q4H PRN PRN Reason: PAIN LEVEL 7 - 10 Pantoprazole Sodium (Protonix Iv) 40 mg IVPUSH BID [facility] Last Admin: 05/15/20 09:30 Dose: 40 mg Documented by: - Objective Vital Signs: Vital Signs Temperature 97.9 F 05/15/20 16:12 Pulse Rate 75 05/15/20 16:12 Respiratory Rate 20 05/15/20 16:12 Blood Pressure 133/87 05/15/20 16:12 O2 Sat by Pulse Oximetry (%) 96 05/15/20 16:12 Constitutional: Yes: Well Nourished, No Distress Eyes: Yes: WNL, Conjunctiva Clear, EOM Intact HENT: Yes: WNL, Atraumatic, Normocephalic Neck: Yes: WNL, Supple Cardiovascular: Yes: WNL, Regular Rate and Rhythm Respiratory: Yes: WNL, Regular, CTA Bilaterally Gastrointestinal: Yes: WNL, Normal Bowel Sounds, Soft Musculoskeletal: Yes: WNL Extremities: Yes: WNL Edema: No Edema: LLE: Trace, RLE: Trace Integumentary: Yes: WNL Neurological: Yes: WNL, Alert, Oriented ...Motor Strength: WNL Psychiatric: Yes: WNL, Alert, Oriented Labs: CBC, BMP 05/15/20 09:26 05/15/20 09:26 Impression/Plan Impression/Plan: 49 year old Femle with a h/o partial hysterectomy(d/t prolapsed urethra) presenting with complaint of worsening of multiple weeks of intermittent Right- sided upper abdominal pain. Physical exam and US concerning for biliary pathology. Subsequent CT imaging showing possible acute cholecystitis. Admitted for acute cholecystitis with possible CBD stone # RUQ pain --Probably due to acute cholecystitis, possible choledochcholithiasis > Tmax 98.6, WBC 7.7 > Total bilirubin 0.8, AST/ALT 60/237; lipase 139 > US RUQ: multiple mobile gallstones, midl diffuse GB wall thickening, neg pericholecystic fluid, CBD ~0.5cm, PD ~2.7mm > CT A/P: mild basilar atelectasis, Cholelithiasis in the GB neck w/ mod GB distention and abn GB wall thickening and pericholecystic fluid. Mild dilation of the CBD. Mild nonspecific wall thickening of the hepatic flexure of the colon, mostly likely due to mild secondary infectious or inflammatory colitis. Diverticulosis w/o diverticulitis > MRCP --pending - abx regimen: ceftriaxone + flagyl - IV protonix - pain regimen: morphine 2mg q4 - surgery consult(Ann): Appreciated: Continue with NPO and plan for lap eladio possible open 05/17/20 or 05/18/20 pending COVID status and results of the MRCP Visit type - Emergency Visit Emergency Visit: Yes ED Registration Date: 05/14/20 Care time: The patient presented to the Emergency Department on the above date and was hospitalized for further evaluation of their emergent condition. - New Patient This patient is new to me today: Yes Date on this admission: 05/15/20 - Critical Care Critical Care patient: No - Discharge Referral Referred to [facility] No
[2020-05-15] MEDS: DEXTROSE 5%-0.45% SALINE 1,000 ML IV SCH (18:00)
--- NOTE | 2020-05-16 09:11 | PN ---
Progress Note (short form) - Note Progress Note: GI CONSULT DICTATED ACUTE CHOLECYSTITIS ABX / NPO / IVF SURGERY F/U
[2020-05-16] MEDS ORDERED: cefTRIAXone SODIUM 1 GM VIAL ONE (09:14)
[2020-05-16] MEDS ORDERED: DEXTROSE 5%-WATER - 50 ML IVPB ONE (09:14)
[2020-05-16 09:19] LABS: BLOOD UREA NITROGEN 8.3 mg/dL (7-18); CALCIUM 8.6 mg/dL (8.5-10.1); CREATININE 0.7 mg/dL (0.55-1.3); MAGNESIUM 1.9 mg/dL (1.8-2.4); PHOSPHOROUS 4.1 mg/dL (2.5-4.9); POTASSIUM 3.7 mmol/L (3.5-5.1)
[2020-05-16] MEDS: PANTOPRAZOLE SODIUM 40 MG VIAL IVPUSH SCH (11:04)
[2020-05-16] MEDS: CEFTRIAXONE 1 GM in DEXTROSE 5%-WATER - 50 ML IVPB SCH (11:05)
--- NOTE | 2020-05-16 11:09 | PN ---
Progress Note (short form) - Note Progress Note: Attending Surgeon Still c/o epigastric and RUQ pain VSS AF abdo-soft; tender RUQ/epigastrium; o/w negative. WBC nl 05/15/2020; no LFT's today MRCP report pending IMP: cholelithiasis/possible choledocholithiasis PLAN: Continue present tx.; may have ice chips; stat repeat LFT's ordered; possible OT 05/17/20 pending COVID status/decreasing LFT's and results of MRCP; d/w the patient in depth. Leland Juarez MD FACS
--- NOTE | 2020-05-16 12:13 | PN ---
Progress Note, Physician Chief Complaint: RUQ pain History of Present Illness: Symptoms started when she started using detox tea off [employer] to lose weight NAD still c/o RUQ/ epigastric pain - Current Medication List Current Medications: Active Medications Ceftriaxone Sodium 1 gm/ (Dextrose) 50 mls @ 100 mls/hr IVPB DAILY [facility] Last Admin: 05/16/20 11:05 Dose: 100 mls/hr Documented by: Metronidazole (Flagyl 500mg Premixed Ivpb -) 500 mg in 100 mls @ 100 mls/hr IVPB Q8H-IV [facility] Last Admin: 05/16/20 11:04 Dose: 100 mls/hr Documented by: Dextrose/Sodium Chloride (D5-1/2ns -) 1,000 mls @ 42 mls/hr IV ASDIR [facility] Last Admin: 05/15/20 18:00 Dose: 42 mls/hr Documented by: Morphine Sulfate (Morphine Sulfate) 2 mg IVPUSH Q4H PRN PRN Reason: PAIN LEVEL 7 - 10 Pantoprazole Sodium (Protonix Iv) 40 mg IVPUSH DAILY [facility] Last Admin: 05/16/20 11:04 Dose: 40 mg Documented by: - Objective Vital Signs: Vital Signs Temperature 98.2 F 05/16/20 11:06 Pulse Rate 73 05/16/20 11:06 Respiratory Rate 18 05/16/20 11:06 Blood Pressure 143/83 05/16/20 11:06 O2 Sat by Pulse Oximetry (%) 99 05/16/20 11:08 Constitutional: Yes: Well Nourished, No Distress, Calm, Obese Cardiovascular: Yes: Regular Rate and Rhythm Respiratory: Yes: Regular, CTA Bilaterally Gastrointestinal: Yes: Abdomen, Obese, Hypoactive Bowel Sounds, Tenderness (RUQ), Tenderness, Epigastrium Genitourinary: Yes: WNL Musculoskeletal: Yes: WNL Extremities: Yes: WNL Edema: No Peripheral Pulses WNL: Yes Neurological: Yes: Alert, Oriented Psychiatric: Yes: Alert, Oriented Labs: CBC, BMP 05/15/20 09:26 05/16/20 07:36 Problem List - Problems (1) RUQ abdominal pain Assessment/Plan: -CT abd: Cholelithiasis compatible with acute cholelithiasis, mild wall thickening, possible colitis? -Surgical consult appreciated -MRCP done- read pending -LFT's trending down -GI consult -Continue IVF -NPO except Ice chips -Plan for possible OR pending COVID 19 PCR -Afebrile -No Leukocytosis -Continue IV flagyl and ceftriaxone -Morphine 2 mg Q4H PRN for pain -UC negative Problems reviewed: Yes Code(s): R10.11 - RIGHT UPPER QUADRANT PAIN Assessment/Plan See problem list Pt is medically stable for OR.
[2020-05-16] MEDS ORDERED: ONDANSETRON 4 MG/2 ML VIAL IVPUSH PRN (12:22)
[2020-05-17] MEDS: DEXTROSE 5%-0.45% SALINE 1,000 ML IV SCH ×3 (03:14→17:19)
[2020-05-17] MEDS: LACTATED RINGERS SOLUTION 1,000 ML IV SCH ×2 (09:22→10:21)
[2020-05-17] MEDS ORDERED: PROMETHAZINE HCL 25 MG/1 ML VIAL IVPUSH PRN ×2 (09:26→20:43)
[2020-05-17] MEDS ORDERED: ONDANSETRON 4 MG/2 ML VIAL IVPUSH PRN ×3 (09:26→20:43)
[2020-05-17] MEDS ORDERED: ROCURONIUM BROMIDE 50 MG/5 ML SYRINGE ONE ×2 (09:35→12:38)
[2020-05-17] MEDS ORDERED: SUCCINYLCHOLINE CHLORIDE 200 MG/10 ML SYRINGE ONE (09:35)
[2020-05-17] MEDS ORDERED: PROPOFOL 20 ML ONE ×2 (09:35)
[2020-05-17] MEDS ORDERED: SEVOFLURANE 250 ML BTL ONE (09:37)
[2020-05-17] MEDS ORDERED: BENZOIN/ALOE VERA/STORAX/TOLU 58 ML BOTTLE ONE (09:42)
[2020-05-17] MEDS ORDERED: BUPIVACAINE HCL 50 ML ONE (09:42)
[2020-05-17] MEDS ORDERED: LIDOCAINE HCL/PF 2% SDV 5ML VIAL ONE (09:44)
--- NOTE | 2020-05-17 09:47 | CONS ---
GI CONSULTATION DATE OF CONSULTATION: DATE OF DICTATION: 05/16/2020 HISTORY: Patient is a 49-year-old female with a past medical history of a partial hysterectomy, admitted to the hospital with multiple episodes of intermittent right upper quadrant abdominal pain mostly attributed to p.o. intake. Over the last couple of days her pain worsened, prompting her to come to the emergency room. She states she thought her symptoms which were intermittent over the past month were secondary to a cleanse she was doing. She has never had an EGD or colonoscopy in the past. She denies hematemesis, melena, hematochezia, diarrhea or constipation. PAST MEDICAL & SURGICAL HISTORY: As listed in the HPI. ALLERGIES: No known drug allergies. SOCIAL HISTORY: Does not smoke. Drinks alcohol 1 to 2 times a week. No drug use. HOME MEDICATIONS: Reviewed. REVIEW OF SYSTEMS: As per the HPI. PHYSICAL EXAMINATION: Vital Signs: Temperature 97, pulse 65, blood pressure 134/80, pulse oximetry 99% on room air, respiratory rate 18. General: No acute distress. HEENT: Anicteric sclerae. Cardiovascular: S1, S2, regular rate and rhythm. Lungs: Bilaterally clear to auscultation. Abdomen: Soft, tender in the right upper quadrant without rebound or guarding. Extremities: No edema. LABORATORIES: White blood cell count 7, hemoglobin 12 and hematocrit 37, platelet count 192, sodium 140, potassium 3.7, BUN 8, creatinine 0.7, AST 36, ALT 164, alkaline phosphatase 204, total bilirubin 0.8. She had an abdomen MRI which revealed cholelithiasis with extensive thickening of the gallbladder compatible with acute cholecystitis. No evidence of choledocholithiasis or biliary ductal dilatation or pancreatitis. IMPRESSION: Acute cholecystitis. PLAN: N.p.o., IV fluids, continue with antibiotics. Surgery followup for potential cholecystectomy. DO OLIVIA HAY/[id number]
[2020-05-17] MEDS ORDERED: LIDOCAINE HCL 2% 100 MG/5 ML DISP.SYRIN ONE (09:54)
[2020-05-17] MEDS ORDERED: fentaNYL CITRATE 250 MCG/5 ML VIAL ONE (10:37)
[2020-05-17] MEDS ORDERED: GLYCOPYRROLATE 0.2 MG/1 ML VIAL ONE ×2 (10:55→11:10)
[2020-05-17] MEDS ORDERED: CEFOXITIN SODIUM 2 GM IVPB ONE (10:59)
[2020-05-17] MEDS ORDERED: DEXAMETHASONE SOD PHOSPHATE 4 MG/1 ML VIAL ONE (11:10)
[2020-05-17] MEDS ORDERED: NEOSTIGMINE METHYLSULFATE 0.5 MG/ML - 10 ML MDV ONE (11:10)
[2020-05-17] MEDS ORDERED: LABETALOL HCL 5 MG/1 ML (100MG/20 ML VIAL) ONE (11:42)
[2020-05-17] MEDS ORDERED: BUPIVACAINE HCL/PF 0.5% (5MG/ML) 10 ML VIAL IJ ONE ×2 (13:25→14:04)
--- NOTE | 2020-05-17 15:01 | SURG ---
Surgery Podiatric Medicine Professor Note Podiatric Medicine Professor: Justyna Vasquez PA-C (Suzy) Date of Service: 05/17/20 Diagnosis: ACUTE CHOLECYSTITIS, CHOLELITHIASIS Procedure: Operation: laparoscopic cholecystectomy I was present for the entirety of the operative procedure. For further detail, please refer to operative report. Visit type - Case Type Case Type: ED Admission - Emergency Emergency Visit: Yes ED Registration Date: 05/14/20 Care time: The patient presented to the Emergency Department on the above date and was hospitalized for further evaluation of their emergent condition. - New patient This patient is new to me today: Yes Date on this admission: 05/17/20 - Critical Care Critical Care patient: No
--- NOTE | 2020-05-17 15:01 | OP ---
Operative Note - Note: Operative Date: 05/17/20 Pre-Operative Diagnosis: ACUTE CHOLECYSTITIS, CHOLELITHIASIS Operation: laparoscopic cholecystectomy Findings: as dictated Post-Operative Diagnosis: Same as Pre-op Surgeon: Leland Juarez [employer] Sergeant: Justyna Vasquez Anesthesiologist/AD OPERATIONS COORDINATOR: Meka Gibbons Anesthesia: General Specimens Removed: gallbladder and gallstones Estimated Blood Loss (mls): 100 (ml) Fluid Volume Replaced (mls): 1,200 (ml lr) Operative Report Dictated: Yes
[2020-05-17] MEDS ORDERED: cefTRIAXone SODIUM 1 GM VIAL ONE (16:35)
[2020-05-17] MEDS ORDERED: DEXTROSE 5%-WATER - 50 ML IVPB ONE (16:35)
[2020-05-17] MEDS: PANTOPRAZOLE SODIUM 40 MG VIAL IVPUSH SCH (16:42)
[2020-05-17] MEDS: CEFTRIAXONE 1 GM in DEXTROSE 5%-WATER - 50 ML IVPB SCH (16:43)
[2020-05-17] MEDS ORDERED: ACETAMINOPHEN 1000 MG/100 ML VIAL (NON FORMULARY) IVPB PRN (18:00)
--- NOTE | 2020-05-17 18:23 | PN ---
Progress Note, Physician Chief Complaint: pt s/p eladio, still sedated but arousable, nad, not in pain, - Current Medication List Current Medications: Active Medications Acetaminophen (Ofirmev Injection -) 1,000 mg IVPB Q6H PRN PRN Reason: PAIN LEVEL 1-5 Stop: 05/18/20 15:28 Ceftriaxone Sodium 1 gm/ (Dextrose) 50 mls @ 100 mls/hr IVPB DAILY [facility] Last Admin: 05/17/20 16:43 Dose: 100 mls/hr Documented by: Metronidazole (Flagyl 500mg Premixed Ivpb -) 500 mg in 100 mls @ 100 mls/hr IVPB Q8H-IV [facility] Last Admin: 05/17/20 17:20 Dose: Not Given Documented by: Dextrose/Sodium Chloride (D5-1/2ns -) 1,000 mls @ 42 mls/hr IV ASDIR [facility] Last Admin: 05/17/20 17:19 Dose: Not Given Documented by: Lactated Ringer's (Lactated Ringers Solution) 1,000 mls @ 125 mls/hr IV ASDIR [facility] Last Admin: 05/17/20 09:22 Dose: 125 mls/hr Documented by: Morphine Sulfate (Morphine Sulfate) 2 mg IVPUSH Q4H PRN PRN Reason: PAIN LEVEL 7 - 10 Last Admin: 05/17/20 16:43 Dose: 2 mg Documented by: Ondansetron HCl (Zofran Injection) 4 mg IVPUSH Q6H PRN PRN Reason: NAUSEA Ondansetron HCl (Zofran Injection) 4 mg IVPUSH Q6H PRN PRN Reason: NAUSEA AND/OR VOMITING Pantoprazole Sodium (Protonix Iv) 40 mg IVPUSH DAILY [facility] Last Admin: 05/17/20 16:42 Dose: 40 mg Documented by: Promethazine HCl (Phenergan Injection -) 12.5 mg IVPUSH Q6H PRN PRN Reason: NAUSEA-FOR RESCUE AFTER 15 MIN - Objective Vital Signs: Vital Signs Temperature 97.7 F 05/17/20 16:30 Pulse Rate 65 05/17/20 16:30 Respiratory Rate 15 05/17/20 17:00 Blood Pressure 137/79 05/17/20 16:30 O2 Sat by Pulse Oximetry (%) 92 L 05/17/20 16:30 Constitutional: Yes: Well Nourished, No Distress, Calm Eyes: Yes: Conjunctiva Clear, EOM Intact HENT: Yes: Atraumatic, Normocephalic Neck: Yes: Supple, Trachea Midline Cardiovascular: Yes: Regular Rate and Rhythm Respiratory: Yes: Regular, CTA Bilaterally Gastrointestinal: Yes: Normal Bowel Sounds, Soft, Other ( slightly tender, soft,) Extremities: Yes: WNL Edema: No Neurological: Yes: WNL, Other (sedated,) Labs: CBC, BMP 05/15/20 09:26 05/16/20 07:36 Impression/Plan Impression/Plan: Assessment/Plan: s/p lap eladio, CT abd: Cholelithiasis compatible with acute cholelithiasis, mild wall thickening, possible colitis? -MRCP done- showed cholecystitis, and no other abnormality, -Continue IVF -NPO for now diet as per surgery, -Continue IV flagyl and ceftriaxone -Morphine 2 mg Q4H PRN for pain Problems reviewed: Yes Visit type - Emergency Visit Emergency Visit: No - New Patient This patient is new to me today: Yes Date on this admission: 05/18/20 - Critical Care Critical Care patient: No - Discharge Referral Referred to [facility] No
--- NOTE | 2020-05-17 19:30 | PN ---
Progress Note (short form) - Note Progress Note: Attending Surgeon Post op check c/o pain; voided VSS AF abdo-dressings c/d/i at port sites; LUIS DANIEL serosanguinous IMP; stable post op PLAN: as per orders Leland Juarez MD FACS
[2020-05-17] MEDS ORDERED: MORPHINE SULFATE 2 MG/ML VIAL IVPUSH PRN ×2 (19:32→20:43)
[2020-05-17] MEDS ORDERED: LACTATED RINGERS SOLUTION 1,000 ML IV SCH (20:43)
[2020-05-18] MEDS: DEXTROSE 5%-0.45% SALINE 1,000 ML IV SCH ×2 (01:00→20:59)
[2020-05-18 08:29] LABS: BASO % 0.3 % (0-2.0); EOS % 0.1 % (0-4.5); HEMATOCRIT 36.8 % (32.4-45.2); LYMPH % 16.2 % (8-40); MCH 28.9 pg (25.7-33.7); MCHC 32.5 g/dl (32.0-36.0); MEAN PLT VOLUME 9.4 fl (7.5-11.1); MONO % 7.7 % (3.8-10.2); NEUT % 75.7 % (42.8-82.8); PLATELET COUNT 299 K/MM3 (134-434); RBC 4.13 M/mm3 (3.60-5.2); RDW 14.4 % (11.6-15.6); WHITE BLOOD COUNT 9.3 K/mm3 (4.0-10.0)
[2020-05-18 09:01] LABS: ALBUMIN 2.8 g/dl (3.4-5.0); BILIRUBIN,TOTAL 0.5 mg/dL (0.2-1); BLOOD UREA NITROGEN 9.5 mg/dL (7-18); CALCIUM 8.6 mg/dL (8.5-10.1); CREATININE 0.8 mg/dL (0.55-1.3); POTASSIUM 4.3 mmol/L (3.5-5.1); TOT PROT 6.4 g/dl (6.4-8.2)
[2020-05-18] MEDS ORDERED: cefTRIAXone SODIUM 1 GM VIAL ONE (09:03)
[2020-05-18] MEDS ORDERED: DEXTROSE 5%-WATER - 50 ML IVPB ONE (09:03)
[2020-05-18] MEDS: PANTOPRAZOLE SODIUM 40 MG VIAL IVPUSH SCH (09:15)
[2020-05-18] MEDS: CEFTRIAXONE 1 GM in DEXTROSE 5%-WATER - 50 ML IVPB SCH (09:15)
--- NOTE | 2020-05-18 10:10 | PN ---
Progress Note (short form) - Note Progress Note: Anesthesia Post op/pain Pt seen and examined S:Alert and awake comfortable O: Vital Signs Temperature 98 F 05/18/20 09:29 Pulse Rate 71 05/18/20 09:29 Respiratory Rate 18 05/18/20 09:29 Blood Pressure 148/77 05/18/20 09:29 O2 Sat by Pulse Oximetry (%) 91 L 05/18/20 09:29 CBC, BMP 05/18/20 07:06 05/18/20 07:06 A/P Current Active Problems Gallstones (Acute) RUQ abdominal pain (Acute) s/p lap cholecytectomy Doing well post op Continue current care. Estevan Carrillo MD
--- NOTE | 2020-05-18 10:44 | PN ---
Progress Note (short form) - Note Progress Note: GENERAL SURGERY POD #1 s/p Lap Eladio under GA Alert. C/o mild incisional tenderness. Adequate pain control with meds ordered Remains NPO. Denies n/v/f/c, CP, palpitations, SOB or KAT. Last Vital Signs Temp Pulse Resp BP Pulse Ox 98 F 71 18 148/77 91 L 05/18/20 09:29 05/18/20 09:29 05/18/20 09:29 05/18/20 09:29 05/18/20 09:29 CBC, BMP 05/18/20 07:06 05/18/20 07:06 Hepatic Panel Total Bilirubin 0.5 mg/dL (0.2-1) 05/18/20 07:06 AST 33 U/L (15-37) 05/18/20 07:06 ALT 89 U/L (13-61) H 05/18/20 07:06 Alkaline Phosphatase 148 U/L (45-117) H 05/18/20 07:06 Albumin 2.8 g/dl (3.4-5.0) L 05/18/20 07:06 KASEY Trend 05/17/20 05/17/20 05/17/20 05/18/20 05/18/20 16:30 18:58 23:00 05:40 10:24 KASEY 60 80 80 76 40 Gen: nad ABD: obese habitus. all surgical ports c/d/i. RLQ KASEY serosang LE: all compartments soft. nt. scds A/P: 49 yo female POD #1 s/p Lap eladio. KASEY drain remains in. - oob and ambulate - cont npo - monitor/record kasey output q shift - pain management prn - possible begin clears in AM - gi & dvt ppx - continue medical management Above plan discussed with Dr. Juarez and agrees. Problem List - Problems (1) S/P laparoscopic cholecystectomy Code(s): Z90.49 - ACQUIRED ABSENCE OF OTHER SPECIFIED PARTS OF DIGESTIVE TRACT (2) Gallstones Code(s): K80.20 - CALCULUS OF GALLBLADDER W/O CHOLECYSTITIS W/O OBSTRUCTION (3) Low back pain Code(s): M54.5 - LOW BACK PAIN Qualifiers: Back pain laterality: bilateral Sciatica presence: with sciatica Sciatica laterality: sciatica laterality unspecified Qualified Code(s): M54.40 - Lumbago with sciatica, unspecified side
[2020-05-18] MEDS: oxyCODONE HCL 5 MG TABLET PO PRN ×2 (15:24→23:50)
--- NOTE | 2020-05-18 18:56 | PN ---
Teaching Attending Note Name of Resident: Collette Ferguson ATTENDING PHYSICIAN STATEMENT I saw and evaluated the patient. I reviewed the resident's note and discussed the case with the resident. I agree with the resident's findings and plan as documented. SUBJECTIVE: seen around 12 pm . had abd pain but had improved compared to am . no N.v . hungry . no OSB or cp . did not pass gas yet OBJECTIVE: NAD, awake , alert,. cv: RRR, 26 Sm at LUSB with no radiation Lungs: CTAB Ext : No edema or erythema on upper or lower extremities Abd: soft, Nl BS , TTP in all quadrants, even to light touch. RUQ draiange with small amount of serosanguinous fluid. surgical incision sites with mild tenderness. No erythema ASSESSMENT AND PLAN: 49 y/o lady with h/o hysterectomy who presented with abd pain and was found to have acute cholecysititis 1- acute cholecystitis s/p CCY. LUIS DANIEL drain in RUQ due to possible small injury of bile duct. LUIS DANIEL with minimal non bilious drainage. abd is tender , but better - keep NPO - cont ceftriaxone and flagyl - cont d5 containing fluids - monitor abd exam closely - LUIS DANIEL management per sx - pain control oxy, and morphine Add heparin sq for DVT px
--- NOTE | 2020-05-18 19:40 | PN ---
Physical Exam: SUBJECTIVE: No overnight events. Patient seen and examined. S/p laparoscopic cholecystectomy (05/17). POD#1. Pt denies passing gas, having BM, denies vomiting. Endorses nausea & abd pain diffusely. However, pain has improved since yesterday. OBJECTIVE: Vital Signs Period Temp Pulse Resp BP Sys/Travis Pulse Ox Last 24 Hr 97.8 F-98.9 F 57-92 18-20 122-148/64-82 91-98 GENERAL: The patient is awake, alert, and fully oriented. HEENT Normal with no signs of trauma. No ptosis. MMM LUNGS: Breath sounds diminished due to pt's abd pain with breathing. CTAB, no wheezes, no crackles, no accessory muscle use. HEART: Regular rate and rhythm, S1, S2, systolic murmur on L sternal border ABDOMEN: not assessed due to pt's refusal 2/2 pain. EXTREMITIES: 2+ pulses, warm, well-perfused, no edema. NEUROLOGICAL: Normal speech, gait not observed. PSYCH: Normal mood, normal affect. SKIN: Warm, dry, normal turgor, no rashes or lesions noted Laboratory Results - last 24 hr 05/18/20 05/18/20 05/18/20 05:56 07:06 07:06 WBC 9.3 RBC 4.13 Hgb 12.0 Hct 36.8 MCV 89.0 MCH 28.9 MCHC 32.5 RDW 14.4 Plt Count 299 D MPV 9.4 Absolute Neuts (auto) 7.0 Neutrophils % 75.7 Lymphocytes % 16.2 D Monocytes % 7.7 Eosinophils % 0.1 D Basophils % 0.3 Nucleated RBC % 0 Sodium 140 Potassium 4.3 Chloride 105 Carbon Dioxide 26 Anion Gap 9 BUN 9.5 Creatinine 0.8 Est GFR (CKD-EPI)AfAm 101.04 Est GFR (CKD-EPI)NonAf 87.18 POC Glucometer 84 Random Glucose 94 Calcium 8.6 Total Bilirubin 0.5 AST 33 ALT 89 H Alkaline Phosphatase 148 H Total Protein 6.4 Albumin 2.8 L 05/18/20 18:17 WBC RBC Hgb Hct MCV MCH MCHC RDW Plt Count MPV Absolute Neuts (auto) Neutrophils % Lymphocytes % Monocytes % Eosinophils % Basophils % Nucleated RBC % Sodium Potassium Chloride Carbon Dioxide Anion Gap BUN Creatinine Est GFR (CKD-EPI)AfAm Est GFR (CKD-EPI)NonAf POC Glucometer 84 Random Glucose Calcium Total Bilirubin AST ALT Alkaline Phosphatase Total Protein Albumin Active Medications Generic Name Dose Route Start Last Admin Trade Name [place] PRN Reason Stop Dose Admin Heparin Sodium (Porcine) 5,000 unit 05/18/20 22:00 Heparin - SQ TID WALT Dextrose/Sodium Chloride 1,000 mls @ 42 mls/hr 05/17/20 20:43 05/18/20 01:00 D5-1/2ns - IV Not Given ASDIR WALT Metronidazole 500 mg in 100 mls @ 100 mls/hr 05/18/20 02:00 05/18/20 17:47 Flagyl 500mg Premixed Ivpb - IVPB 100 mls/hr Q8H-IV WALT Administration Ceftriaxone Sodium 1 gm/ 50 mls @ 100 mls/hr 05/18/20 10:00 05/18/20 09:15 Dextrose IVPB 100 mls/hr DAILY WALT Administration Ondansetron HCl 4 mg 05/17/20 20:43 05/18/20 17:47 Zofran Injection IVPUSH 4 mg Q6H PRN Administration NAUSEA AND/OR VOMITING Oxycodone HCl 5 mg 05/18/20 08:38 05/18/20 15:24 Roxicodone - PO 5 mg Q6H PRN Administration PAIN LEVEL 7 - 10 Pantoprazole Sodium 40 mg 05/18/20 10:00 05/18/20 09:15 Protonix Iv IVPUSH 40 mg DAILY WALT Administration ASSESSMENT/PLAN: 49 F PMH partial hysterectomy for a prolapsed urethra p/w worsening RUQ abd pain for weeks. #choleyscystitis s/p laparoscopic cholecystectomy -LUIS DANIEL drained 80 ccs yesterday, and 50 ccs overnight to AM today. serosanguineous fluid -c/w ceftriaxone 1 gm 50 mls @100ml/hr IVPB & metronidazole 500 mg 100 mls @100 ml/hr -c/w oxycodone 5 mg PO Q6H -pt taking shallow breaths due to pain s/p sgy. Incentive spirometry was ordered. #DVT PPX Heparin sq #FEN Dextrose 5% 0.45% NS Monitor lytes NPO #DISPO Maintain med surg Echo outpatient for murmur Visit type - Emergency Visit Emergency Visit: Yes ED Registration Date: 07/17/20 Care time: The patient presented to the Emergency Department on the above date and was hospitalized for further evaluation of their emergent condition. - New Patient This patient is new to me today: Yes Date on this admission: 05/18/20 - Critical Care Critical Care patient: No ATTENDING PHYSICIAN STATEMENT I saw and evaluated the patient. I reviewed the resident's note and discussed the case with the resident. I agree with the resident's findings and plan as documented. SUBJECTIVE: OBJECTIVE: ASSESSMENT AND PLAN:
[2020-05-18] MEDS: HEPARIN NA (PORCINE) 5,000 UNITS/ML 1ML VIAL SQ SCH (21:41)
[2020-05-19] MEDS: HEPARIN NA (PORCINE) 5,000 UNITS/ML 1ML VIAL SQ SCH ×3 (05:13→21:14)
[2020-05-19 08:37] LABS: BASO % 0.6 % (0-2.0); EOS % 1.6 % (0-4.5); HEMOGLOBIN 11.8 GM/dL (10.7-15.3); LYMPH % 21.8 % (8-40); MCH 29.4 pg (25.7-33.7); MCHC 32.9 g/dl (32.0-36.0); MEAN CELL VOLUME 89.3 fl (80-96); MEAN PLT VOLUME 8.9 fl (7.5-11.1); MONO % 8.6 % (3.8-10.2); NEUT % 67.4 % (42.8-82.8); PLATELET COUNT 291 K/MM3 (134-434); RBC 4.03 M/mm3 (3.60-5.2); RDW 14.5 % (11.6-15.6); WHITE BLOOD COUNT 6.6 K/mm3 (4.0-10.0)
[2020-05-19 09:08] LABS: ALBUMIN 2.8 g/dl (3.4-5.0); BILIRUBIN,TOTAL 0.5 mg/dL (0.2-1); BLOOD UREA NITROGEN 7.4 mg/dL (7-18); CALCIUM 8.8 mg/dL (8.5-10.1); CREATININE 0.7 mg/dL (0.55-1.3); MAGNESIUM 1.9 mg/dL (1.8-2.4); PHOSPHOROUS 3.7 mg/dL (2.5-4.9); POTASSIUM 3.9 mmol/L (3.5-5.1); TOT PROT 6.4 g/dl (6.4-8.2)
[2020-05-19] MEDS ORDERED: cefTRIAXone SODIUM 1 GM VIAL ONE (09:19)
[2020-05-19] MEDS ORDERED: DEXTROSE 5%-WATER - 50 ML IVPB ONE (09:20)
[2020-05-19] MEDS: PANTOPRAZOLE SODIUM 40 MG VIAL IVPUSH SCH (09:24)
--- NOTE | 2020-05-19 09:38 | PN ---
Physical Exam: SUBJECTIVE: Patient seen and examined. pain well controlled, denies: N/V/F/C, denies: CP, SOB. Tolerated ice chips with no pain OBJECTIVE: Vital Signs Temperature 98.4 F 05/19/20 06:00 Pulse Rate 72 05/19/20 06:00 Respiratory Rate 18 05/19/20 06:00 Blood Pressure 131/78 05/19/20 06:00 O2 Sat by Pulse Oximetry (%) 97 05/19/20 06:00 GENERAL: The patient is awake, alert, and fully oriented, in no acute distress. anicteric LUNGS: unlabored breathing on RA ABDOMEN: Soft, incisional tenderness, nondistended, LUIS DANIEL drain with slight bile tinge, normoactive bowel sounds, no guarding, no rebound, no hepatosplenomegaly, no masses. EXTREMITIES: 2+ pulses, warm, well-perfused, no edema. Laboratory Results - last 24 hr 05/18/20 05/19/20 05/19/20 18:17 06:55 07:40 WBC 6.6 RBC 4.03 Hgb 11.8 Hct 36.0 MCV 89.3 MCH 29.4 MCHC 32.9 RDW 14.5 Plt Count 291 MPV 8.9 Absolute Neuts (auto) 4.4 Neutrophils % 67.4 Lymphocytes % 21.8 D Monocytes % 8.6 Eosinophils % 1.6 D Basophils % 0.6 Nucleated RBC % 0 Sodium Potassium Chloride Carbon Dioxide Anion Gap BUN Creatinine Est GFR (CKD-EPI)AfAm Est GFR (CKD-EPI)NonAf POC Glucometer 84 99 Random Glucose Calcium Phosphorus Magnesium Total Bilirubin AST ALT Alkaline Phosphatase Total Protein Albumin 05/19/20 07:40 WBC RBC Hgb Hct MCV MCH MCHC RDW Plt Count MPV Absolute Neuts (auto) Neutrophils % Lymphocytes % Monocytes % Eosinophils % Basophils % Nucleated RBC % Sodium 136 Potassium 3.9 Chloride 101 Carbon Dioxide 28 Anion Gap 7 L BUN 7.4 Creatinine 0.7 Est GFR (CKD-EPI)AfAm 118.74 Est GFR (CKD-EPI)NonAf 102.45 POC Glucometer Random Glucose 92 Calcium 8.8 Phosphorus 3.7 Magnesium 1.9 Total Bilirubin 0.5 AST 24 ALT 68 H Alkaline Phosphatase 127 H Total Protein 6.4 Albumin 2.8 L Active Medications Generic Name Dose Route Start Last Admin Trade Name Freq PRN Reason Stop Dose Admin Heparin Sodium (Porcine) 5,000 unit 05/18/20 22:00 05/19/20 05:13 Heparin - SQ Not Given TID WALT Dextrose/Sodium Chloride 1,000 mls @ 42 mls/hr 05/17/20 20:43 05/18/20 20:59 D5-1/2ns - IV Not Given ASDIR WALT Metronidazole 500 mg in 100 mls @ 100 mls/hr 05/18/20 02:00 05/19/20 09:24 Flagyl 500mg Premixed Ivpb - IVPB 100 mls/hr Q8H-IV WALT Administration Ceftriaxone Sodium 1 gm/ 50 mls @ 100 mls/hr 05/18/20 10:00 05/18/20 09:15 Dextrose IVPB 100 mls/hr DAILY WALT Administration Ondansetron HCl 4 mg 05/17/20 20:43 05/18/20 17:47 Zofran Injection IVPUSH 4 mg Q6H PRN Administration NAUSEA AND/OR VOMITING Oxycodone HCl 5 mg 05/18/20 08:38 05/18/20 23:50 Roxicodone - PO 5 mg Q6H PRN Administration PAIN LEVEL 7 - 10 Pantoprazole Sodium 40 mg 05/18/20 10:00 05/19/20 09:24 Protonix Iv IVPUSH 40 mg DAILY WALT Administration ASSESSMENT/PLAN: 49yoF PMH partial hysterectomy found to have acute cholecystitis with no choledocholithasis. Now s/p laparoscopic cholecystectomy on 05/17. Maintain LUIS DANIEL drain; Monitor I&Os advance diet to clears; will continue to advance as tolerated Continue IV abx: ceftriaxone, flagyl pain control PRN Vitals: afebrile, labs: WBC 6.6, H&H stable, T bili 0.5. LFT downtrending: Alk phos: 127, ALT 68 DVT ppx: SQH, OOB, IS, SCDs GI ppx: pantroprazole zofran PRN d/w Dr. Juarez
[2020-05-19] MEDS: CEFTRIAXONE 1 GM in DEXTROSE 5%-WATER - 50 ML IVPB SCH (11:23)
[2020-05-19] MEDS: oxyCODONE HCL 5 MG TABLET PO PRN ×2 (14:28→21:13)
--- NOTE | 2020-05-19 16:22 | PN ---
Teaching Attending Note Name of Resident: Paulino Lowe ATTENDING PHYSICIAN STATEMENT I saw and evaluated the patient. I reviewed the resident's note and discussed the case with the resident. I agree with the resident's findings and plan as documented. SUBJECTIVE: improved today, no N/V, no BM, no flatus OBJECTIVE: NAD, awake , alert,. cv: RRR, 2/6 Sm at LUSB with no radiation Lungs: CTAB , decreased breath sounds at bases Ext : No edema or erythema on upper or lower extremities Abd: soft, Nl BS , TTP in all quadrants,. RUQ draiange with small amount of serosanguinous fluid. surgical incision sites with mild tenderness. No erythema ASSESSMENT AND PLAN: 49 y/o lady with h/o hysterectomy who presented with abd pain and was found to have acute cholecysititis 1- Acute cholecystitis s/p CCY. LUIS DANIEL drain in RUQ due to possible small injury of bile duct. - slightly improved today -clears - cont ceftriaxone and flagyl - cont d5 1/2 NS - monitor abd exam closely - LUIS DANIEL management per sx - pain control oxy - encouraged incentive spirometer use 2- Heart murmur: she understands she needs echo as out pt ordered by her PCP 3- heparin sq for DVT px . she agrees to use ( refused initially ) HLOC
--- NOTE | 2020-05-19 20:20 | PN ---
Physical Exam: SUBJECTIVE: No overnight events. Patient seen and examined. She refused heparin, but discussed importance of heparin in preventing DVT and PE. Denies N/V, BM and passing gas. Endorses abd pain at surgical sites. However, pain has improved since yesterday. LUIS DANIEL drained 100 mL serosanguineous fluid yesterday until hift change at night. Then 25 mL serosanguineous fluid drained until this AM. OBJECTIVE: Vital Signs Period Temp Pulse Resp BP Sys/Travis Pulse Ox Last 24 Hr 98.1 F-99.3 F 69-79 18-18 131-138/78-96 1-97 GENERAL: The patient is awake, alert, and fully oriented. HEENT Normal with no signs of trauma. No ptosis. MMM LUNGS: Breath sounds diminished due to pt's abd pain with breathing. CTAB, no wheezes, no crackles, no accessory muscle use. HEART: Regular rate and rhythm, S1, S2, systolic murmur on L sternal border ABDOMEN: hypoactive bowel sounds; TTP at surgical sites. No erythema, warmth, fluctuance around LUIS DANIEL drain and surgical sites. EXTREMITIES: 2+ pulses, warm, well-perfused, no edema. NEUROLOGICAL: Normal speech, gait not observed. PSYCH: Normal mood, normal affect. SKIN: Warm, dry, normal turgor, no rashes or lesions noted Laboratory Results - last 24 hr 05/19/20 05/19/20 05/19/20 06:55 07:40 07:40 WBC 6.6 RBC 4.03 Hgb 11.8 Hct 36.0 MCV 89.3 MCH 29.4 MCHC 32.9 RDW 14.5 Plt Count 291 MPV 8.9 Absolute Neuts (auto) 4.4 Neutrophils % 67.4 Lymphocytes % 21.8 D Monocytes % 8.6 Eosinophils % 1.6 D Basophils % 0.6 Nucleated RBC % 0 Sodium 136 Potassium 3.9 Chloride 101 Carbon Dioxide 28 Anion Gap 7 L BUN 7.4 Creatinine 0.7 Est GFR (CKD-EPI)AfAm 118.74 Est GFR (CKD-EPI)NonAf 102.45 POC Glucometer 99 Random Glucose 92 Calcium 8.8 Phosphorus 3.7 Magnesium 1.9 Total Bilirubin 0.5 AST 24 ALT 68 H Alkaline Phosphatase 127 H Total Protein 6.4 Albumin 2.8 L Active Medications Generic Name Dose Route Start Last Admin Trade Name Freq PRN Reason Stop Dose Admin Heparin Sodium (Porcine) 5,000 unit 05/18/20 22:00 05/19/20 13:37 Heparin - SQ 5,000 unit TID WALT Administration Metronidazole 500 mg in 100 mls @ 100 mls/hr 05/18/20 02:00 05/19/20 17:18 Flagyl 500mg Premixed Ivpb - IVPB 100 mls/hr Q8H-IV WALT Administration Ceftriaxone Sodium 1 gm/ 50 mls @ 100 mls/hr 05/18/20 10:00 05/19/20 11:23 Dextrose IVPB 100 mls/hr DAILY WALT Administration Ondansetron HCl 4 mg 05/17/20 20:43 05/18/20 17:47 Zofran Injection IVPUSH 4 mg Q6H PRN Administration NAUSEA AND/OR VOMITING Oxycodone HCl 5 mg 05/18/20 08:38 05/19/20 14:28 Roxicodone - PO 5 mg Q6H PRN Administration PAIN LEVEL 7 - 10 Pantoprazole Sodium 40 mg 05/18/20 10:00 05/19/20 09:24 Protonix Iv IVPUSH 40 mg DAILY WALT Administration ASSESSMENT/PLAN: 49 F PMH partial hysterectomy for a prolapsed urethra p/w worsening RUQ abd pain for weeks. #choleyscystitis s/p laparoscopic cholecystectomy -c/w ceftriaxone 1 gm 50 mls @100ml/hr IVPB & metronidazole 500 mg 100 mls @100 ml/hr -c/w oxycodone 5 mg PO Q6H -encouraged pt to use Incentive spirometry #DVT PPX Heparin sq #FEN No IV liquids Monitor lytes Started clear liquids #DISPO Maintain med surg Echo outpatient for murmur Visit type - Emergency Visit Emergency Visit: Yes ED Registration Date: 05/14/20 Care time: The patient presented to the Emergency Department on the above date and was hospitalized for further evaluation of their emergent condition. - New Patient This patient is new to me today: No - Critical Care Critical Care patient: No ATTENDING PHYSICIAN STATEMENT I saw and evaluated the patient. I reviewed the resident's note and discussed the case with the resident. I agree with the resident's findings and plan as documented. SUBJECTIVE: OBJECTIVE: ASSESSMENT AND PLAN:
[2020-05-19] MEDS ORDERED: ACETAMINOPHEN 325 MG TABLET (FP) PO ONE ×2 (23:15)
[2020-05-20] MEDS: HEPARIN NA (PORCINE) 5,000 UNITS/ML 1ML VIAL SQ SCH ×3 (05:30→21:35)
--- NOTE | 2020-05-20 08:43 | PN ---
Progress Note (short form) - Note Progress Note: POD 3, s/p lap eladio Patient seen and examined. Continue to have abdo pain, c/o significant flatus. Has been oob to the restroom. Voiding without issue. Tolerating clears, no n/v/d. No bm Vital Signs Temp 98.6 F 05/20/20 05:42 Pulse 76 05/20/20 05:42 Resp 18 05/20/20 05:42 BP 127/78 05/20/20 05:42 Pulse Ox 94 L 05/20/20 05:42 Intake & Output 05/19/20 05/19/20 05/20/20 11:59 23:59 11:59 Intake Total 604 864 580 Output Total 20 100 100 Balance 584 764 480 Intake: IV 504 294 D5-1/2Ns - 1,000 ml @ 42 504 294 mls/hr IV ASDIR WALT Rx#: [id number] IVPB 100 150 100 Oral 420 480 Output: Drainage 20 100 100 Right Lower Abdomen 20 100 100 Other: Voiding Method Toilet Toilet Toilet # Unmeasured Voids Void 3 2 2 Bowel Movement No No No GENERAL: awake, alert, oriented, in no acute distress. LUNGS: unlabored breathing on RA ABDOMEN: Soft, minimal distention noted, + ttp throughout, KASEY drain in place with scant serosanguinous drainage in reservoir, ?bile tinge, normoactive bowel sounds ASSESSMENT/PLAN: 49 y/o F w/ PMHx obesity a/w abdo pain, found to have acute cholecystitis, now POD 3, s/p laparoscopic cholecystectomy afebrile, vss kasey 40 ml overnight Keep KASEY in place, Monitor I&Os Continue IV abx: ceftriaxone, flagyl pain control PRN zofran PRN tolerating clears, diet advanced to regular d/w attending Dr Juarez
[2020-05-20 08:45] LABS: BASO % 0.7 % (0-2.0); EOS % 3.4 % (0-4.5); HEMATOCRIT 36.3 % (32.4-45.2); HEMOGLOBIN 12.1 GM/dL (10.7-15.3); LYMPH % 28.9 % (8-40); MCHC 33.5 g/dl (32.0-36.0); MEAN CELL VOLUME 89.8 fl (80-96); MEAN PLT VOLUME 8.6 fl (7.5-11.1); MONO % 9.2 % (3.8-10.2); NEUT % 57.8 % (42.8-82.8); PLATELET COUNT 293 K/MM3 (134-434); RBC 4.04 M/mm3 (3.60-5.2); RDW 14.5 % (11.6-15.6); WHITE BLOOD COUNT 5.4 K/mm3 (4.0-10.0)
[2020-05-20 09:19] LABS: ALBUMIN 2.7 g/dl (3.4-5.0); BILIRUBIN,TOTAL 0.5 mg/dL (0.2-1); CALCIUM 8.7 mg/dL (8.5-10.1); CREATININE 0.7 mg/dL (0.55-1.3); MAGNESIUM 2.1 mg/dL (1.8-2.4); PHOSPHOROUS 4.1 mg/dL (2.5-4.9); POTASSIUM 3.9 mmol/L (3.5-5.1); TOT PROT 6.4 g/dl (6.4-8.2)
[2020-05-20] MEDS ORDERED: DEXTROSE 5%-WATER - 50 ML IVPB ONE (09:47)
[2020-05-20] MEDS ORDERED: cefTRIAXone SODIUM 1 GM VIAL ONE (09:47)
[2020-05-20] MEDS: PANTOPRAZOLE SODIUM 40 MG VIAL IVPUSH SCH (09:52)
[2020-05-20] MEDS: CEFTRIAXONE 1 GM in DEXTROSE 5%-WATER - 50 ML IVPB SCH (09:53)
--- NOTE | 2020-05-20 10:58 | PATH ---
Surgical Pathology Report Patient Name: PERRI ESCOTO Med. Rec. #: [id number] /Age/Gender: 1970 (Age: 49) / F Account: [id number] Location: [address] [place] [address]/[facility] Taken: 05/17/2020 Received: 05/18/2020 Reported: 05/20/2020 Physicians: MD Serg Santos Specimen(s) Received GALLBLADDER WITH STONE Clinical History Multiple gallstones Final Diagnosis GALLBLADDER, CHOLECYSTECTOMY: ACUTE AND CHRONIC CHOLECYSTITIS. CHOLELITHIASIS. Electronically Signed Leanna Heaton M.D. Gross Description Received in formalin, labeled "gallbladder," is a 7.4 x 3.0 x 2.7 cm. gallbladder with a 0.2 cm. in length portion of cystic duct attached. The outer surface is mccullough-pink with multifocal defects and varies from smooth to shaggy. The lumen contains abundant in mccullough-white, irregular to fragmented choleliths ranging from 0.1-0.8 cm in greatest dimension. There is no bile present within the lumen. The mucosa is mccullough-brown and focally eroded. The wall of the gallbladder ranges from 0.1-0.5 cm. in thickness. Welfare Specialist sections are submitted in one cassette. 05/18/2020 [facility]05/18/2020
[2020-05-20] MEDS: SIMETHICONE 80 MG TAB.CHEW (FP) PO PRN ×2 (11:16→21:35)
--- NOTE | 2020-05-20 12:26 | PN ---
Progress Note (short form) - Note Progress Note: Attending Surgeon: Dr. Griffiths will cover for me 05/20/20-05/23/20. Leland Juarez MD FACS
--- NOTE | 2020-05-20 17:48 | PN ---
Teaching Attending Note Name of Resident: Paulino Lowe ATTENDING PHYSICIAN STATEMENT I saw and evaluated the patient. I reviewed the resident's note and discussed the case with the resident. I agree with the resident's findings and plan as documented. SUBJECTIVE: pain has improved passed gas. and had a watery BM . no fever . No N/V . tolerated liquid diet OBJECTIVE: NAD, awake , alert,. CV: RRR, 2/6 Sm at LUSB with no radiation Lungs: CTAB , decreased breath sounds at bases Ext : No edema or erythema on upper or lower extremities Abd: soft, Nl BS , less TTP in all quadrants,. RUQ LUIS DANIEL with small amount of serosanguinous fluid. ASSESSMENT AND PLAN: 49 y/o lady with h/o hysterectomy who presented with abd pain and was found to have acute cholecysititis 1- Acute cholecystitis s/p CCY. LUIS DANIEL drain in RUQ due to possible small injury of bile duct. - cont to improve. no signs of infection . drain with no purulence and no bile - regular diet today - start augmentin . - dc IVF - cont incentive spirometer 2- Heart murmur: echo as out pt 3- heparin sq for DVT px . HLOC
[2020-05-20] MEDS: AMOX TR/POT CLAV 875MG/125MG TABLETS (FP) PO SCH (17:56)
--- NOTE | 2020-05-20 20:29 | OP ---
DATE OF OPERATION: 05/17/2020 PREOPERATIVE DIAGNOSIS: Acute cholecystitis and cholelithiasis. POSTOPERATIVE DIAGNOSIS: Acute cholecystitis and cholelithiasis. PROCEDURE: Laparoscopic cholecystectomy. SURGEON: Leland Juarez MD INFORMATION SERVICES VICE PRESIDENT: Justyna Vasquez PA-C ANESTHESIA: General. OPERATIVE FINDINGS: There was marked, acute cholecystitis possibly gangrenous in nature and cholelithiasis. 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 At the time of dissection of the cystic duct and verification of the critical view of safety, a small pinhole was noted in the aberrant right hepatic duct, which at the completion of surgery appeared to have abated. The rest of the findings showed multiple adhesions from acute cholecystitis, and the rest of the findings were unremarkable. DESCRIPTION OF PROCEDURE: Patient was placed on the operating room table in supine position. After the induction of general anesthesia, the patient's abdomen was prepped with ChloraPrep and draped in sterile fashion. A time-out was taken and pneumoperitoneum established above the umbilicus using a Veress needle. Once 15 mmHg of pressure were obtained, a 5-mm port was placed at the umbilicus and additional lateral 5-mm ports and a subxiphoid 12-mm port. Laparoscopy was carried out and the previously noted findings were observed. Dissection was begun at the neck of the gallbladder where the peritoneum was opened medially and laterally using blunt dissection and electrocautery. The cystic duct was identified coursing from the neck of the gallbladder towards the common bile duct and it was dissected using blunt dissection proximally and distally for length. Similarly, the artery was identified and dissected proximally and distally for length. A critical view of safety was taken and then the duct and the artery were clipped twice proximally and twice distally with large hemoclips. The duct and artery were then serially divided using Endoshears. Hemostasis was checked for and noted to be good and then the gallbladder was removed from the liver bed in a retrograde fashion using electrocautery. Prior to removal from the edge of the liver, hemostasis in the liver bed was again checked for and noted to be good and then the gallbladder removed from the edge of the liver, placed in an EndoCatch, and brought out through the subxiphoid port. Pneumoperitoneum was reestablished. Copious irrigation was carried out with saline. Hemostasis was verified again. A 10-mm Jan-Mary drain was placed in the right hepatorenal fossa and brought out through 1 of the 5-mm ports and secured to the skin with 2-0 silk suture. All port sites were removed under laparoscopic vision without evidence of bleeding from the port sites. The port sites were infiltrated with 0.5% Marcaine and the skin edges reapproximated with 4-0 Biosyn in a subcuticular continuous fashion. Steri-Strips and Band-Aid dressings were placed. The drain was connected to bulb suction and then the patient aroused from general anesthesia and transferred to the postanesthesia care unit in stable condition, awake and alert. ESTIMATED BLOOD LOSS: 100 mL. REPLACEMENT: Crystalloid. DRAINS: One 10-mm Jan-Mary in the gallbladder fossa. SPECIMEN: Gallbladder and contents to Pathology. I, Leland Juarez, was physically present in the operating room from the time the patient was placed on the operating table until she was transferred to the postanesthesia care unit in [place]. MD MIKHAIL Bryan/[id number] MTDD
--- NOTE | 2020-05-20 20:58 | PN ---
Physical Exam: SUBJECTIVE: No overnight events. Patient seen and examined. She was agreeable to heparin yesterday, but refused heparin again this morning. Discussed importance of heparin in preventing DVT and PE again. Denies N/V, BM. Passed gas 5 times. LUIS DANIEL was leaking orange fluid overnight. Endorses abd pain at surgical sites, but pain continues to improve. LUIS DANIEL drained 50 mL serosanguineous fluid yesterday until hift change at night. Then 90 mL serosanguineous fluid drained until this AM. OBJECTIVE: Vital Signs Period Temp Pulse Resp BP Sys/Travis Pulse Ox Last 24 Hr 97.5 F-98.6 F 68-88 18-18 118-146/78-92 94-97 GENERAL: The patient is awake, alert, and fully oriented. HEENT Normal with no signs of trauma. No ptosis. MMM LUNGS: Breath sounds diminished due to pt's abd pain with breathing. CTAB, no wheezes, no crackles, no accessory muscle use. HEART: Regular rate and rhythm, S1, S2, systolic murmur on L sternal border ABDOMEN: diminished bowel sounds; TTP at surgical sites. No erythema, warmth, fluctuance around LUIS DANIEL drain and surgical sites. LUIS DANIEL drain was not leaking on exam in AM. EXTREMITIES: 2+ pulses, warm, well-perfused, no edema. NEUROLOGICAL: Normal speech, gait not observed. PSYCH: Normal mood, normal affect. SKIN: Warm, dry, normal turgor, no rashes or lesions noted Laboratory Results - last 24 hr 05/20/20 05/20/20 07:38 07:38 WBC 5.4 RBC 4.04 Hgb 12.1 Hct 36.3 MCV 89.8 MCH 30.0 MCHC 33.5 RDW 14.5 Plt Count 293 MPV 8.6 Absolute Neuts (auto) 3.1 Neutrophils % 57.8 Lymphocytes % 28.9 D Monocytes % 9.2 Eosinophils % 3.4 D Basophils % 0.7 Nucleated RBC % 0 Sodium 139 Potassium 3.9 Chloride 103 Carbon Dioxide 28 Anion Gap 7 L BUN 10.0 Creatinine 0.7 Est GFR (CKD-EPI)AfAm 118.74 Est GFR (CKD-EPI)NonAf 102.45 Random Glucose 87 Calcium 8.7 Phosphorus 4.1 Magnesium 2.1 Total Bilirubin 0.5 AST 21 ALT 56 Alkaline Phosphatase 117 Total Protein 6.4 Albumin 2.7 L Active Medications Generic Name Dose Route Start Last Admin Trade Name Freq PRN Reason Stop Dose Admin Amoxicillin/Clavulanate Potassium 1 tab 05/20/20 17:30 05/20/20 17:56 Augmentin - 875mg Tablet PO 1 tab BID@0800,1730 W[facility] Administration Heparin Sodium (Porcine) 5,000 unit 05/18/20 22:00 05/20/20 13:49 Heparin - SQ 5,000 unit TID WALT Administration Ondansetron HCl 4 mg 05/17/20 20:43 05/18/20 17:47 Zofran Injection IVPUSH 4 mg Q6H PRN Administration NAUSEA AND/OR VOMITING Oxycodone HCl 5 mg 05/18/20 08:38 05/19/20 21:13 Roxicodone - PO 5 mg Q6H PRN Administration PAIN LEVEL 7 - 10 Pantoprazole Sodium 40 mg 05/18/20 10:00 05/20/20 09:52 Protonix Iv IVPUSH 40 mg DAILY WALT Administration Simethicone 80 mg 05/20/20 10:41 05/20/20 11:16 Mylicon - PO 80 mg Q4H PRN Administration DYSPEPSIA ASSESSMENT/PLAN: 49 F PMH partial hysterectomy for a prolapsed urethra p/w worsening RUQ abd pain for weeks. #choleyscystitis s/p laparoscopic cholecystectomy -started augmentin 875 mg PO BID. s/p ceftriaxone -c/w oxycodone 5 mg PO Q6H -encouraged pt to use Incentive spirometry #DVT PPX Heparin sq #FEN No IV liquids Monitor lytes Started regular diet #DISPO Maintain med surg Echo outpatient for murmur Visit type - Emergency Visit Emergency Visit: Yes ED Registration Date: 05/14/20 Care time: The patient presented to the Emergency Department on the above date and was hospitalized for further evaluation of their emergent condition. - New Patient This patient is new to me today: No - Critical Care Critical Care patient: No ATTENDING PHYSICIAN STATEMENT I saw and evaluated the patient. I reviewed the resident's note and discussed the case with the resident. I agree with the resident's findings and plan as documented. SUBJECTIVE: OBJECTIVE: ASSESSMENT AND PLAN:
[2020-05-21] MEDS: oxyCODONE HCL 5 MG TABLET PO PRN (00:52)
[2020-05-21] MEDS: HEPARIN NA (PORCINE) 5,000 UNITS/ML 1ML VIAL SQ SCH ×3 (06:01→23:00)
[2020-05-21 07:48] LABS: BASO % 1.1 % (0-2.0); EOS % 4.6 % (0-4.5); HEMATOCRIT 36.6 % (32.4-45.2); HEMOGLOBIN 12.1 GM/dL (10.7-15.3); LYMPH % 32.2 % (8-40); MCH 29.2 pg (25.7-33.7); MEAN CELL VOLUME 88.5 fl (80-96); MEAN PLT VOLUME 8.6 fl (7.5-11.1); MONO % 8.2 % (3.8-10.2); NEUT % 53.9 % (42.8-82.8); PLATELET COUNT 343 K/MM3 (134-434); RBC 4.13 M/mm3 (3.60-5.2); RDW 14.7 % (11.6-15.6); WHITE BLOOD COUNT 6.4 K/mm3 (4.0-10.0)
[2020-05-21 08:19] LABS: ALBUMIN 2.8 g/dl (3.4-5.0); BILIRUBIN,TOTAL 0.5 mg/dL (0.2-1); BLOOD UREA NITROGEN 11.2 mg/dL (7-18); CALCIUM 8.8 mg/dL (8.5-10.1); CREATININE 0.7 mg/dL (0.55-1.3); TOT PROT 6.4 g/dl (6.4-8.2)
[2020-05-21] MEDS: AMOX TR/POT CLAV 875MG/125MG TABLETS (FP) PO SCH ×2 (09:16→17:23)
[2020-05-21] MEDS: PANTOPRAZOLE SODIUM 40 MG VIAL IVPUSH SCH (09:16)
--- NOTE | 2020-05-21 14:11 | PN ---
Progress Note (short form) - Note Progress Note: s/p lap eladio Patient seen and examined. Continue to have abdo pain, c/o significant flatus. Has been oob to the restroom. Voiding without issue. Tolerating clears, no n/v/d. Tolerating regular diet. Last Vital Signs Temp Pulse Resp BP Pulse Ox 97.7 F 87 17 139/91 95 05/21/20 10:00 05/21/20 10:00 05/21/20 10:00 05/21/20 10:00 05/21/20 10:00 CBC, BMP 05/21/20 06:35 05/21/20 06:35 GENERAL: awake, alert, oriented, in no acute distress. LUNGS: unlabored breathing on RA ABDOMEN: Soft, minimal distention noted, + ttp throughout, LUIS DANIEL drain in place with serosanguinous drainage in reservoir, ?bile tinge, normoactive bowel sounds ASSESSMENT/PLAN: 49 y/o F w/ PMHx obesity a/w abdo pain, found to have acute cholecystitis, s/p laparoscopic cholecystectomy with concern for possible bile leak -will keep drain in place over the weekend, if continues to look good plan for discharge on Sunday (as per Dr. Juarez) -regular diet -oob/ambulate
--- NOTE | 2020-05-21 16:26 | PN ---
Teaching Attending Note Name of Resident: Collette Ferguson ATTENDING PHYSICIAN STATEMENT I saw and evaluated the patient. I reviewed the resident's note and discussed the case with the resident. I agree with the resident's findings and plan as documented. SUBJECTIVE: no pain, no fever or chills. abd pain better and had Bms, and no SOB OBJECTIVE: NAD, awake , alert,. CV: RRR, 2/6 Sm at LUSB with no radiation Lungs: CTAB , decreased breath sounds at bases Ext : No edema or erythema on upper or lower extremities Abd: soft, Nl BS , minimal TTP in all quadrants,. RUQ LUIS DANIEL with small amount of serosanguinous fluid. ASSESSMENT AND PLAN: 49 y/o lady with h/o hysterectomy who presented with abd pain and was found to have acute cholecysititis 1- Acute cholecystitis s/p CCY. LUIS DANIEL drain in RUQ due to possible small injury of bile duct. - cont to improve. no signs of infection . drain with no purulence and no bile - cont diet - cont augmentin . - cont incentive spirometer - plan fro drain removal on Sunday 2- Heart murmur: echo as out pt 3- heparin sq for DVT px . HLOC
--- NOTE | 2020-05-21 18:51 | PN ---
Physical Exam: SUBJECTIVE: : No overnight events. Patient seen and examined. Denies N/V, BM. Passed gas and had BM. Endorses abd pain at surgical sites improved. LUIS DANIEL drained 30 mL serosanguineous fluid yesterday until shift change at night. Then 40 mL serosanguineous fluid drained until this AM. OBJECTIVE: Vital Signs Period Temp Pulse Resp BP Sys/Travis Pulse Ox Last 24 Hr 97.7 F-98.4 F 69-88 17-18 136-144/76-91 95-98 GENERAL: The patient is awake, alert, and fully oriented. HEENT Normal with no signs of trauma. No ptosis. MMM LUNGS: CTAB, no wheezes, no crackles, no accessory muscle use. HEART: Regular rate and rhythm, S1, S2, systolic murmur on L sternal border ABDOMEN: normoactive BS; TTP at surgical sites, but improved greatly since yesterday. No erythema, warmth, fluctuance around LUIS DANIEL drain and surgical sites. LUIS DANIEL drain was not leaking on exam in AM. EXTREMITIES: 2+ pulses, warm, well-perfused, no edema. NEUROLOGICAL: Normal speech, gait not observed. PSYCH: Normal mood, normal affect. SKIN: Warm, dry, normal turgor, no rashes or lesions noted Laboratory Results - last 24 hr 05/14/20 05/21/20 05/21/20 23:49 06:35 06:35 WBC 6.4 RBC 4.13 Hgb 12.1 Hct 36.6 MCV 88.5 MCH 29.2 MCHC 33.0 RDW 14.7 Plt Count 343 MPV 8.6 Absolute Neuts (auto) 3.4 Neutrophils % 53.9 Lymphocytes % 32.2 Monocytes % 8.2 Eosinophils % 4.6 H Basophils % 1.1 Nucleated RBC % 0 Sodium 140 Potassium 4.0 Chloride 104 Carbon Dioxide 25 Anion Gap 10 BUN 11.2 Creatinine 0.7 Est GFR (CKD-EPI)AfAm 118.74 Est GFR (CKD-EPI)NonAf 102.45 Random Glucose 90 Calcium 8.8 Phosphorus 4.0 Magnesium 2.0 Total Bilirubin 0.5 AST 23 ALT 51 Alkaline Phosphatase 109 Total Protein 6.4 Albumin 2.8 L COVID-19 (LAXMI) Not detected Active Medications Generic Name Dose Route Start Last Admin Trade Name Freq PRN Reason Stop Dose Admin Amoxicillin/Clavulanate Potassium 1 tab 05/20/20 17:30 05/21/20 17:23 Augmentin - 875mg Tablet PO 1 tab BID@0800,1730 [facility] Administration Heparin Sodium (Porcine) 5,000 unit 05/18/20 22:00 05/21/20 14:03 Heparin - SQ 5,000 unit TID WALT Administration Ondansetron HCl 4 mg 05/17/20 20:43 05/18/20 17:47 Zofran Injection IVPUSH 4 mg Q6H PRN Administration NAUSEA AND/OR VOMITING Pantoprazole Sodium 40 mg 05/18/20 10:00 05/21/20 09:16 Protonix Iv IVPUSH Not Given DAILY WALT Simethicone 80 mg 05/20/20 10:41 05/20/20 21:35 Mylicon - PO 80 mg Q4H PRN Administration DYSPEPSIA ASSESSMENT/PLAN: 49 F PMH partial hysterectomy for a prolapsed urethra p/w worsening RUQ abd pain for weeks. #choleyscystitis s/p laparoscopic cholecystectomy -Day #2 augmentin 875 mg PO BID. s/p ceftriaxone -c/w oxycodone 5 mg PO Q6H -encouraged pt to use Incentive spirometry -sgy c/s appreciated. keep drain over weekend. Possible d/c for Sunday. #DVT PPX Heparin sq #FEN No IV liquids Monitor lytes c/w regular diet #DISPO Maintain med surg Echo outpatient for murmur Visit type - Emergency Visit Emergency Visit: Yes ED Registration Date: 05/14/20 Care time: The patient presented to the Emergency Department on the above date and was hospitalized for further evaluation of their emergent condition. - New Patient This patient is new to me today: No - Critical Care Critical Care patient: No ATTENDING PHYSICIAN STATEMENT I saw and evaluated the patient. I reviewed the resident's note and discussed the case with the resident. I agree with the resident's findings and plan as documented. SUBJECTIVE: OBJECTIVE: ASSESSMENT AND PLAN:
[2020-05-22] MEDS: HEPARIN NA (PORCINE) 5,000 UNITS/ML 1ML VIAL SQ SCH ×2 (06:04→13:46)
[2020-05-22 08:08] LABS: BASO % 0.9 % (0-2.0); EOS % 3.5 % (0-4.5); HEMATOCRIT 35.4 % (32.4-45.2); HEMOGLOBIN 11.8 GM/dL (10.7-15.3); LYMPH % 34.1 % (8-40); MCH 29.5 pg (25.7-33.7); MCHC 33.5 g/dl (32.0-36.0); MEAN CELL VOLUME 88.2 fl (80-96); MEAN PLT VOLUME 8.6 fl (7.5-11.1); NEUT % 53.5 % (42.8-82.8); PLATELET COUNT 365 K/MM3 (134-434); RBC 4.01 M/mm3 (3.60-5.2); RDW 14.5 % (11.6-15.6); WHITE BLOOD COUNT 6.6 K/mm3 (4.0-10.0)
[2020-05-22 08:37] LABS: ALBUMIN 2.8 g/dl (3.4-5.0); BILIRUBIN,TOTAL 0.4 mg/dL (0.2-1); BLOOD UREA NITROGEN 12.2 mg/dL (7-18); CALCIUM 8.9 mg/dL (8.5-10.1); CREATININE 0.7 mg/dL (0.55-1.3); MAGNESIUM 2.1 mg/dL (1.8-2.4); POTASSIUM 4.4 mmol/L (3.5-5.1); TOT PROT 6.6 g/dl (6.4-8.2)
[2020-05-22] MEDS: AMOX TR/POT CLAV 875MG/125MG TABLETS (FP) PO SCH ×2 (09:23→17:02)
[2020-05-22] MEDS: PANTOPRAZOLE SODIUM 40 MG VIAL IVPUSH SCH (09:23)
[2020-05-22] MEDS: ENOXAPARIN NA (PORCINE) 40 MG/0.4 ML DISP.SYRIN SQ SCH (18:16)
--- NOTE | 2020-05-22 18:54 | PN ---
Teaching Attending Note Name of Resident: Paulino Lowe ATTENDING PHYSICIAN STATEMENT I saw and evaluated the patient. I reviewed the resident's note and discussed the case with the resident. I agree with the resident's findings and plan as documented. SUBJECTIVE: no pain , declined Sq heparin . no N/v . watery BMs and this is her normal at home when she eats diary products OBJECTIVE: NAD, awake , alert,. CV: RRR, 2/6 Sm at LUSB with no radiation Lungs: CTAB Ext : No edema or erythema on upper or lower extremities Abd: soft, Nl BS , minimal TTP in all quadrants. RUQ LUIS DANIEL with small amount of serosanguinous fluid. ASSESSMENT AND PLAN: 49 y/o lady with h/o hysterectomy who presented with abd pain and was found to have acute cholecysititis 1- Acute cholecystitis s/p CCY. LUIS DANIEL drain in RUQ due to possible small injury of bile duct. - cont to improve - cont diet - cont augmentin. - cont incentive spirometer 2- Heart murmur: echo as out pt 3- change heparin to lovenox HLOC No labs tomorrow
--- NOTE | 2020-05-22 23:26 | PN ---
Physical Exam: SUBJECTIVE: No overnight events. Patient seen and examined. Denies N/V. Passed gas and had BM. Endorses abd pain at surgical sites improved. OBJECTIVE: Vital Signs Period Temp Pulse Resp BP Sys/Travis Pulse Ox Last 24 Hr 97.8 F-98.7 F 77-83 16-18 126-145/58-80 96-98 GENERAL: The patient is awake, alert, and fully oriented. HEENT Normal with no signs of trauma. No ptosis. MMM LUNGS: CTAB, no wheezes, no crackles, no accessory muscle use. HEART: Regular rate and rhythm, S1, S2, systolic murmur on L sternal border ABDOMEN: normoactive BS; TTP at surgical sites, but improved greatly since yesterday. No erythema, warmth, fluctuance around LUIS DANIEL drain and surgical sites EXTREMITIES: 2+ pulses, warm, well-perfused, no edema. NEUROLOGICAL: Normal speech, gait not observed. PSYCH: Normal mood, normal affect. SKIN: Warm, dry, normal turgor, no rashes or lesions noted Laboratory Results - last 24 hr 05/21/20 05/22/20 05/22/20 12:30 06:24 06:24 WBC 6.6 RBC 4.01 Hgb 11.8 Hct 35.4 MCV 88.2 MCH 29.5 MCHC 33.5 RDW 14.5 Plt Count 365 MPV 8.6 Absolute Neuts (auto) 3.6 Neutrophils % 53.5 Lymphocytes % 34.1 Monocytes % 8.0 Eosinophils % 3.5 Basophils % 0.9 Nucleated RBC % 0 Sodium 141 Potassium 4.4 Chloride 106 Carbon Dioxide 25 Anion Gap 10 BUN 12.2 Creatinine 0.7 Est GFR (CKD-EPI)AfAm 118.74 Est GFR (CKD-EPI)NonAf 102.45 Random Glucose 89 Calcium 8.9 Phosphorus 5.0 H Magnesium 2.1 Total Bilirubin 0.4 AST 21 ALT 45 Alkaline Phosphatase 103 Total Protein 6.6 Albumin 2.8 L COVID-19 (LAXMI) Not detected Active Medications Generic Name Dose Route Start Last Admin Trade Name Freq PRN Reason Stop Dose Admin Amoxicillin/Clavulanate Potassium 1 tab 05/20/20 17:30 05/22/20 17:02 Augmentin - 875mg Tablet PO 1 tab BID@0800,1730 [facility] Administration Enoxaparin Sodium 40 mg 05/22/20 17:45 05/22/20 18:16 Lovenox - SQ 40 mg DAILY WALT Administration Ondansetron HCl 4 mg 05/17/20 20:43 05/18/20 17:47 Zofran Injection IVPUSH 4 mg Q6H PRN Administration NAUSEA AND/OR VOMITING Pantoprazole Sodium 40 mg 05/18/20 10:00 05/22/20 09:23 Protonix Iv IVPUSH Not Given DAILY WALT Simethicone 80 mg 05/20/20 10:41 05/20/20 21:35 Mylicon - PO 80 mg Q4H PRN Administration DYSPEPSIA ASSESSMENT/PLAN: 49 F PMH partial hysterectomy for a prolapsed urethra p/w worsening RUQ abd pain for weeks. #choleyscystitis s/p laparoscopic cholecystectomy -Day #3 augmentin 875 mg PO BID. s/p ceftriaxone -c/w oxycodone 5 mg PO Q6H -encouraged pt to use Incentive spirometry -sgy c/s appreciated. keep drain over . Possible d/c for Sunday. #DVT PPX Heparin sq #FEN No IV liquids Monitor lytes c/w regular diet #DISPO Maintain med surg Echo outpatient for murmur Visit type - Emergency Visit Emergency Visit: Yes ED Registration Date: 05/14/20 Care time: The patient presented to the Emergency Department on the above date and was hospitalized for further evaluation of their emergent condition. - New Patient This patient is new to me today: No - Critical Care Critical Care patient: No ATTENDING PHYSICIAN STATEMENT I saw and evaluated the patient. I reviewed the resident's note and discussed the case with the resident. I agree with the resident's findings and plan as documented. SUBJECTIVE: OBJECTIVE: ASSESSMENT AND PLAN:
[2020-05-23] MEDS: AMOX TR/POT CLAV 875MG/125MG TABLETS (FP) PO SCH ×2 (08:19→18:10)
[2020-05-23 08:23] LABS: BASO % 1.3 % (0-2.0); EOS % 3.6 % (0-4.5); HEMATOCRIT 35.9 % (32.4-45.2); LYMPH % 32.5 % (8-40); MCH 29.7 pg (25.7-33.7); MCHC 33.4 g/dl (32.0-36.0); MEAN CELL VOLUME 88.9 fl (80-96); MONO % 8.9 % (3.8-10.2); NEUT % 53.7 % (42.8-82.8); PLATELET COUNT 378 K/MM3 (134-434); RBC 4.04 M/mm3 (3.60-5.2); RDW 14.4 % (11.6-15.6); WHITE BLOOD COUNT 5.3 K/mm3 (4.0-10.0)
[2020-05-23 08:43] LABS: ALBUMIN 2.8 g/dl (3.4-5.0); BILIRUBIN,TOTAL 0.4 mg/dL (0.2-1); BLOOD UREA NITROGEN 13.1 mg/dL (7-18); CALCIUM 9.2 mg/dL (8.5-10.1); CREATININE 0.8 mg/dL (0.55-1.3); POTASSIUM 4.3 mmol/L (3.5-5.1); TOT PROT 6.6 g/dl (6.4-8.2)
[2020-05-23] MEDS: ENOXAPARIN NA (PORCINE) 40 MG/0.4 ML DISP.SYRIN SQ SCH (09:06)
[2020-05-23] MEDS: PANTOPRAZOLE SODIUM 40 MG VIAL IVPUSH SCH (09:06)
--- NOTE | 2020-05-23 15:39 | PN ---
Progress Note (short form) - Note Progress Note: Subjective: no fever or chills. no pain in abd or any where. No N.V . no complaints today Objective: Vital Signs: Last Vital Signs Temp Pulse Resp BP Pulse Ox 98.6 F 76 18 146/85 97 05/23/20 05:00 05/23/20 05:00 05/22/20 21:00 05/23/20 05:00 05/22/20 21:00 Laboratory Results - last 24 hr 05/23/20 05/23/20 07:45 07:45 WBC 5.3 RBC 4.04 Hgb 12.0 Hct 35.9 MCV 88.9 MCH 29.7 MCHC 33.4 RDW 14.4 Plt Count 378 MPV 8.0 Absolute Neuts (auto) 2.8 Neutrophils % 53.7 Lymphocytes % 32.5 Monocytes % 8.9 Eosinophils % 3.6 Basophils % 1.3 Nucleated RBC % 0 Sodium 140 Potassium 4.3 Chloride 106 Carbon Dioxide 26 Anion Gap 8 BUN 13.1 Creatinine 0.8 Est GFR (CKD-EPI)AfAm 101.04 Est GFR (CKD-EPI)NonAf 87.18 Random Glucose 89 Calcium 9.2 Phosphorus 5.0 H Magnesium 2.0 Total Bilirubin 0.4 AST 20 ALT 40 Alkaline Phosphatase 93 Total Protein 6.6 Albumin 2.8 L Physical Exam: NAD, awake , alert,. CV: RRR, 2/6 Sm at LUSB with no radiation Lungs: CTAB Ext: No edema or erythema on upper or lower extremities Abd: soft, Nl BS , NT, even to deep palpation . steristrips over enscopic wounds. no surrounding erythema or discharge . R sided drain with sersonguinous fluid, no erythema or discharge at insertion site ASSESSMENT AND PLAN: 49 y/o lady with h/o hysterectomy who presented with abd pain and was found to have acute cholecysititis 1- Acute cholecystitis s/p CCY. LUIS DANIEL drain in RUQ due to possible small injury of bile duct. - cont diet - cont augmentin. ( day 10 of Abx ) . will stop tomorrow after removing drain - cont incentive spirometer 2- Heart murmur: echo as out pt 3- Lovenox fr DVT px HLOC hopefully home tomorrow after drain removal Visit type - Emergency Visit Emergency Visit: Yes ED Registration Date: 05/14/20 Care time: The patient presented to the Emergency Department on the above date and was hospitalized for further evaluation of their emergent condition. - New Patient This patient is new to me today: No - Critical Care Critical Care patient: No
[2020-05-24 02:52] VITALS: TEMP 98.4
[2020-05-24] MEDS ORDERED: ACETAMINOPHEN 325 MG TABLET (FP) PO ONE (04:06)
[2020-05-24 05:44] VITALS: BP 129/75; PULSE 68
--- NOTE | 2020-05-24 08:04 | PN ---
Progress Note (short form) - Note Progress Note: SURGERY s/p lap eladio Patient seen and examined. Pt states she is feeling well and is anxious to be discharged home. Has been oob to the restroom. Voiding without issue. Tolerating clears, no n/v/d. Tolerating regular diet. Last Vital Signs Temp Pulse Resp BP Pulse Ox 98.4 F 68 18 129/75 95 05/24/20 05:43 05/24/20 05:43 05/24/20 05:43 05/24/20 05:43 05/24/20 05:43 CBC, BMP 05/23/20 07:45 05/23/20 07:45 GENERAL: awake, alert, oriented, in no acute distress. LUNGS: unlabored breathing on RA ABDOMEN: Soft, nontender, nondistended, LUIS DANIEL drain in place with serosanguinous drainage in reservoir, normoactive bowel sounds ASSESSMENT/PLAN: 49 y/o F w/ PMHx obesity a/w abdo pain, found to have acute cholecystitis, s/p laparoscopic cholecystectomy with concern for possible bile leak -drain removed at bedside, pt is cleared for discharge from Surgery standpoint. -pt should follow up with Dr. Juarez as outpatient next week. Pt discussed with Dr. Juarez who agrees with plan
[2020-05-24] MEDS: AMOX TR/POT CLAV 875MG/125MG TABLETS (FP) PO SCH (08:06)
[2020-05-24 08:56] LABS: HEMOGLOBIN 12.1 GM/dL (10.7-15.3); MCHC 32.8 g/dl (32.0-36.0); MEAN CELL VOLUME 88.6 fl (80-96); MEAN PLT VOLUME 8.1 fl (7.5-11.1); PLATELET COUNT 433 K/MM3 (134-434); RBC 4.18 M/mm3 (3.60-5.2); RDW 14.6 % (11.6-15.6); WHITE BLOOD COUNT 5.8 K/mm3 (4.0-10.0)
[2020-05-24] MEDS: ENOXAPARIN NA (PORCINE) 40 MG/0.4 ML DISP.SYRIN SQ SCH (09:02)
[2020-05-24] MEDS: PANTOPRAZOLE SODIUM 40 MG VIAL IVPUSH SCH (09:03)
--- NOTE | 2020-05-24 14:02 | DS ---
Physical Exam: SUBJECTIVE: Patient seen and examined OBJECTIVE: Vital Signs Period Temp Pulse Resp BP Sys/Travis Pulse Ox Last 24 Hr 98.4 F-98.4 F 68-75 18-18 129-142/75-82 95-97 PHYSICAL EXAM GENERAL: The patient is awake, alert, and fully oriented, in no acute distress. HEAD: Normal with no signs of trauma. EYES: PERRL, extraocular movements intact, sclera anicteric, conjunctiva clear. ENT: Ears normal, nares patent, oropharynx clear without exudates, moist mucous membranes. NECK: Trachea midline, full range of motion, supple. LUNGS: Breath sounds equal, clear to auscultation bilaterally, no wheezes, no crackles, no accessory muscle use. HEART: Regular rate and rhythm, S1, S2 without murmur, rub or gallop. ABDOMEN: Soft, nontender, nondistended, normoactive bowel sounds, no guarding, no rebound, no hepatosplenomegaly, no masses. EXTREMITIES: 2+ pulses, warm, well-perfused, no edema. NEUROLOGICAL: Cranial nerves II through XII grossly intact. Normal speech, gait not observed. PSYCH: Normal mood, normal affect. SKIN: Warm, dry, normal turgor, no rashes or lesions noted. LABS Laboratory Results - last 24 hr 05/24/20 07:52 WBC 5.8 RBC 4.18 Hgb 12.1 Hct 37.0 MCV 88.6 MCH 29.0 MCHC 32.8 RDW 14.6 Plt Count 433 MPV 8.1 HOSPITAL COURSE: Date of Admission:05/14/20 Date of Discharge: 05/24/20 Discharge Summary Problems reviewed: Yes Reason For Visit: MULTIPLE GALLSTONES Condition: Improved - Instructions Diet, Activity, Other Instructions: You came in for abdominal pain. Imaging showed an infection of your gall bladder. You had surgery to remove your gallbladder and given antibiotics. Your symptoms improved. You are stable for discharge. On physical exam, a heart murmur was heard. Please follow-up with employment coordinator for echocardiogram outpatient. MEDICATIONS Continue your home medications as prescribed. FOLLOW-UP Please follow-up with primary care physician, Dr. Mccann, for general health maintenance. Please follow-up with employment coordinator for echocardiogram. A referral is attached for Dr. Son. [place] [facility] [place] Please follow-up with surgeon, Dr. Juarez, for post operative follow-up in 7-[address] Juarez Discharge Instructions Dear PERRI ESCOTO, Post Operative Instructions Physical activity Resume your normal everyday activity as tolerated no heavy lifting or exercise until seen by your surgeon. You may walk unlimited amounts of and climb stairs. You may resume driving the car when you feel safe and comfortable behind the wheel. Wound care the white strips on your wounds , They will peel off in the next 7 to 10 days. you can shower but keep the drain site dry , if wet, please change dressing and put dry gauze . you can remove gauze in 2 days from now Diet There are no dietary restrictions. Eat healthy, high-fiber foods. Drink 6 to 8 glasses of liquid each day. This will assist in keeping your bowels are regular. Pain management You may take Tylenol or acetaminophen or Ibuprofen (for example, Motrin, Advil etc.) Call Dr. Juarez for any of the following: Severe pain not relieved by medication Fever of 101 or higher Excessive bleeding or drainage on dressing Inability to urinate Call the office at [phone] for a post operative appointment in 7 - 10 days. Referrals: Leland Juarez MD [Staff Physician] - 1 Week Gabriel Mccann MD [Primary Care Provider] - 1 Week Odilon Son MD [Staff Physician] - Disposition: HOME - Home Medications Comprehensive Discharge Medication List: Ambulatory Orders Albuterol Sulfate Inhaler - [Ventolin HFA Inhaler -] 1 - 2 inh PO Q4H PRN 05/24/20 - Discharge Referral Referred to [facility] No ATTENDING PHYSICIAN STATEMENT I saw and evaluated the patient. I reviewed the resident's note and discussed the case with the resident. I agree with the resident's findings and plan as documented. SUBJECTIVE: OBJECTIVE: ASSESSMENT AND PLAN:
--- NOTE | 2020-05-24 15:33 | PN ---
Teaching Attending Note Name of Resident: Thu Dillon ATTENDING PHYSICIAN STATEMENT I saw and evaluated the patient. I reviewed the resident's note and discussed the case with the resident. I agree with the resident's findings and plan as documented. SUBJECTIVE: seen at 9 am no pain, no fever or chills. one liquidy Bm this am after coffee with milk no abd pain. OBJECTIVE: NAD, awake, alert. Ext: No edema or erythema on upper or lower extremities Abd: soft, Nl BS , no drain in RUQ. site of the drain with clean dressing . no skin changes ASSESSMENT AND PLAN: 49 y/o lady with h/o hysterectomy who presented with abd pain and was found to have acute cholecysititis 1- Acute cholecystitis s/p CCY. s/p removal of LUIS DANIEL drain this am dc Abx. d/w Dr. Mcnulty f/u with dr mcnulty in 11 week and pcp she was advised not to take steri-strips off . she was advised to keep dressing in RUQ dry and clean and remove it in two days. if dirty or wet before then she can change 2- Heart murmur: echo as out pt either by PCP or radio sales account executive dc home
== END 2020-05-24 10:35 | disposition home or self-care (01) | DRG 263 ==
LOC: JER 18:22 → JERBED 23:35 → J6S 05-15 18:11
PROVIDERS: ADMIT Internal Medicine; ATTEND Internal Medicine
PROC: 0W9G40Z Drainage of Peritoneal Cavity with Drainage Device, Percutaneous Endoscopic Approach (ICD-10-PCS; 2020-05-17)
PROC: 0FT44ZZ Resection of Gallbladder, Percutaneous Endoscopic Approach (ICD-10-PCS; principal; 2020-05-17 11:00)
DX: K80.00 Calculus of gallbladder with acute cholecystitis without obstruction (principal); K82.A1 Gangrene of gallbladder in cholecystitis; J98.11 Atelectasis; K91.71 Accidental puncture and laceration of a digestive system organ or structure during a digestive system procedure; Y83.8 Other surgical procedures as the cause of abnormal reaction of the patient, or of later complication, without mention of misadventure at the time of the procedure; K82.8 Other specified diseases of gallbladder; R10.12 Left upper quadrant pain; M54.40 Lumbago with sciatica, unspecified side; R63.4 Abnormal weight loss; Z68.36 Body mass index [BMI] 36.0-36.9, adult; K52.9 Noninfective gastroenteritis and colitis, unspecified; R01.1 Cardiac murmur, unspecified; Z90.710 Acquired absence of both cervix and uterus
CPT/HCPCS: 36415; 71046-TC-FY; 74177-TC; 74181-TC; 76705-TC; 80048; 80053; 81003; 82962; 83690; 83735; 84100; 84703; 85025; 85027; 87086; 88304-TC; 93005; 93010; 94010; 94760; 99285-25; J0131; J1644; Q9967; U0003

== ENCOUNTER 2020-05-30 09:32 | Emergency (ER) | payer OTHER ==
[2020-05-30 09:38] VITALS: BP 107/79; PULSE 83; TEMP 97.6; BMI 36.8
--- NOTE | 2020-05-30 09:57 | PDOC ---
History of Present Illness - General Chief Complaint: Foreign Body (FB) Stated Complaint: OBJECT IN FINGURE Time Seen by Provider: 05/30/20 09:37 History Source: Patient - History of Present Illness Timing/Duration: reports: this morning Location: reports: hands Past History - Medical History Allergies/Adverse Reactions: Allergies Allergy/AdvReac Type Severity Reaction Status Date / Time No Known Allergies Allergy Verified 05/30/20 09:35 Home Medications: Ambulatory Orders Albuterol Sulfate Inhaler - [Ventolin HFA Inhaler -] 1 - 2 inh PO Q4H PRN 05/24/20 Anemia: No Asthma: (BRONCHITIS) Cancer: No Cardiac Disorders: No CVA: No COPD: No CHF: No Dementia: No Diabetes: No GI Disorders: No Disorders: No HTN: No Hypercholesterolemia: No Liver Disease: No Seizures: No Thyroid Disease: No - Surgical History Abdominal Surgery: No Appendectomy: No Cardiac Surgery: No Cholecystectomy: Yes (gall stones removed) Lung Surgery: No Neurologic Surgery: No Orthopedic Surgery: No - Immunization History Immunization Up to Date: Yes - Psycho-Social/Smoking History Smoking History: Never smoked Have you smoked in the past 12 months: No - Substance Abuse Hx (Audit-C & DAST Scrn) How often the patient has a drink containing alcohol: 2-4 times / month Score: In Men: 4 or > Positive; In Women: 3 or > Positive: 2 Screen Result (Pos requires Nsg. Audit-10AR): Negative Review of Systems - Review of Systems Integumentary: No: Erythema Neurological: No: Numbness, Tingling *Physical Exam - Vital Signs Last Vital Signs Temp Pulse Resp BP Pulse Ox 97.6 F 83 18 107/79 97 05/30/20 09:33 05/30/20 09:33 05/30/20 09:33 05/30/20 09:33 05/30/20 09:33 - Physical Exam General Appearance: Yes: Appropriately Dressed. No: Apparent Distress HEENT: positive: Normal Voice Neck: positive: Supple Respiratory/Chest: negative: Respiratory Distress Extremity: positive: Other (staple embedded in volar apsect of distal phalanx of R thumb) Integumentary: positive: Dry, Warm Neurologic: positive: Fully Oriented, Alert, Normal Mood/Affect Procedures - Additional Procedures Additional Procedures: other Progress: 05/30/20 10:28 FB removal: s/p saline/betadine cleanse to R thumb w/ digital block w/ 6cc of 1% lido without epi, staple removed w/ forceps without complication Medical Decision Making - Medical Decision Making 05/30/20 10:35 49 yo F, no sig hx, here w/ staple stuck to R thumb this am see exam Staple removed from R thumb s/p digital block w/ local wound care/dressing XR w/ no retained fb Dc to return as needed Discharge - Discharge Information Problems reviewed: Yes Clinical Impression/Diagnosis: Foreign body (FB) in soft tissue Condition: Improved Disposition: HOME - Follow up/Referral Referrals: Gabriel Mccann MD [Primary Care Provider] - - Patient Discharge Instructions Patient Printed Discharge Instructions: DI for Removal of Foreign Body From Skin Additional Instructions: Staple was removed intact Xray with no retained foreign body Return as needed - Post Discharge Activity
== END 2020-05-30 09:40 | disposition home or self-care (01) ==
LOC: JERFT 09:32 → JER 09:32 → JERFT 09:40
DX: M79.5 Residual foreign body in soft tissue (principal)
CPT/HCPCS: 73140-TC-RT-FY; 99283-25

== ENCOUNTER 2022-09-19 10:15 | Emergency (ER) | payer OTHER ==
[2022-09-19 10:28] VITALS: BP 130/88; PULSE 71; RESP 16; TEMP 97.7; BMI 33.6
[2022-09-19] MEDS ORDERED: IBUPROFEN 600 MG TABLET (FP) PO ONE ×2 (11:04→11:28)
== END 2022-09-19 12:05 | disposition home or self-care (01) ==
LOC: JERFT 10:15
PROC: 2W3KX1Z Immobilization of Left Finger using Splint (ICD-10-PCS; principal; 2022-09-19)
DX: S62.619A Displaced fracture of proximal phalanx of unspecified finger, initial encounter for closed fracture (principal); W01.0XXA Fall on same level from slipping, tripping and stumbling without subsequent striking against object, initial encounter; Y93.02 Activity, running
CPT/HCPCS: 73110-TC-LT-FY; 73130-TC-LT-FY; 99284-25

== ENCOUNTER 2023-02-11 10:54 | Emergency (ER) | payer OTHER ==
[2023-02-11 10:57] VITALS: BP 148/92; PULSE 69; RESP 18; TEMP 98; BMI 33.5
[2023-02-11] MEDS ORDERED: LIDOCAINE 5% TOPICAL PATCH TP ONE (12:34)
[2023-02-11] MEDS ORDERED: KETOROLAC TROMETHAMINE 15 MG/ML VIAL IM ONE (12:34)
[2023-02-11] MEDS ORDERED: KETOROLAC TROMETHAMINE 15 MG/ML VIAL ONE (12:35)
[2023-02-11] MEDS ORDERED: LIDOCAINE 5% TOPICAL PATCH ONE (12:35)
[2023-02-11] MEDS ORDERED: LIDOCAINE PATCH REMOVAL MC ONE (22:00)
== END 2023-02-11 13:09 | disposition home or self-care (01) ==
LOC: JERFT 10:54 → JER 10:54 → JERFT 13:09
PROC: 3E0233Z Introduction of Anti-inflammatory into Muscle, Percutaneous Approach (ICD-10-PCS; principal; 2023-02-11)
DX: M54.50 Low back pain, unspecified (principal); G89.29 Other chronic pain
CPT/HCPCS: 99284-25

== ENCOUNTER 2023-06-05 12:04 | Emergency (ER) | payer OTHER ==
[2023-06-05 12:17] VITALS: BP 139/88; PULSE 83; RESP 16; TEMP 98.3; BMI 34.7
[2023-06-05] MEDS ORDERED: ACETAMINOPHEN 500 MG TABLET (FP) PO ONE (13:20)
[2023-06-05] MEDS ORDERED: ACETAMINOPHEN 500 MG TABLET (FP) ONE (13:28)
[2023-06-05 13:39] LABS: EPI CELLS 5 /uL (0-25.1); HYALINE CASTS 3 /uL (0-3.1); PH,URINE 6.5 (5.0-8.0); URINE APPEARANCE CLEAR; URINE BACTERIA 108 /uL (0-1359); URINE BILIRUBIN NEGATIVE (NEGATIVE); URINE COLOR YELLOW; URINE GLUCOSE (UA) NEGATIVE (NEGATIVE); URINE KETONE 1+ (NEGATIVE); URINE LEUK ESTERASE 1+ (NEGATIVE); URINE NITRITE NEGATIVE (NEGATIVE); URINE PROTEIN NEGATIVE (NEGATIVE); URINE RBC 40 /uL (0-23.9); URINE WBC 145 /uL (0-25.8)
== END 2023-06-05 15:10 | disposition home or self-care (01) ==
LOC: JERFT 12:04
DX: R10.2 Pelvic and perineal pain (principal); N89.9 Noninflammatory disorder of vagina, unspecified
CPT/HCPCS: 36415; 81003; 87086; 87491; 87591; 87661; 99283-25

== ENCOUNTER 2023-10-10 12:15 | Emergency (ER) | payer OTHER ==
[2023-10-10] MEDS ORDERED: ACETAMINOPHEN 500 MG TABLET (FP) PO ONE (12:54)
[2023-10-10] MEDS ORDERED: KETOROLAC TROMETHAMINE 15 MG/ML VIAL IVPUSH ONE (12:54)
[2023-10-10] MEDS ORDERED: SODIUM CHLORIDE 0.9% 500 ML INFUS.BAG IV ONE (12:54)
[2023-10-10 13:13] VITALS: BP 138/95; PULSE 98; RESP 19; BMI 37.2
[2023-10-10] MEDS ORDERED: ACETAMINOPHEN 325 MG TABLET (FP) ONE (13:17)
[2023-10-10] MEDS ORDERED: KETOROLAC TROMETHAMINE 15 MG/ML VIAL ONE (13:18)
[2023-10-10 14:21] LABS: PH,URINE 8.5 (5.0-8.0); URINE APPEARANCE CLEAR; URINE BILIRUBIN NEGATIVE (NEGATIVE); URINE COLOR YELLOW; URINE GLUCOSE (UA) NEGATIVE (NEGATIVE); URINE KETONE NEGATIVE (NEGATIVE); URINE LEUK ESTERASE NEGATIVE (NEGATIVE); URINE NITRITE NEGATIVE (NEGATIVE); URINE PROTEIN NEGATIVE (NEGATIVE)
[2023-10-10 14:22] LABS: BASO % 0.5 % (0-2.0); HEMATOCRIT 38.6 % (32.4-45.2); HEMOGLOBIN 12.5 GM/dL (10.7-15.3); LYMPH % 9.9 % (8-40); MCH 28.5 pg (25.7-33.7); MCHC 32.5 g/dl (32.0-36.0); MEAN CELL VOLUME 87.6 fl (80-96); MEAN PLT VOLUME 8.6 fl (7.5-11.1); MONO % 5.4 % (3.8-10.2); NEUT % 84.2 % (42.8-82.8); PLATELET COUNT 236 10^3/uL (134-434); WHITE BLOOD COUNT 11.5 K/mm3 (4.0-10.0)
[2023-10-10 15:38] LABS: BLOOD UREA NITROGEN 14.2 mg/dL (7-18)
[2023-10-10 15:41] LABS: CALCIUM 8.6 mg/dL (8.5-10.1); CREATININE 0.9 mg/dL (0.55-1.3)
[2023-10-10 15:42] LABS: ALBUMIN 3.6 g/dl (3.4-5.0); TOT PROT 7.6 g/dl (6.4-8.2)
[2023-10-10 15:45] VITALS: TEMP 98.9
== END 2023-10-10 18:58 | disposition home or self-care (01) ==
LOC: JER 12:15
PROC: 3E033NZ Introduction of Analgesics, Hypnotics, Sedatives into Peripheral Vein, Percutaneous Approach (ICD-10-PCS; principal; 2023-10-10)
DX: R42 Dizziness and giddiness (principal); R07.0 Pain in throat; R10.31 Right lower quadrant pain; R10.32 Left lower quadrant pain; B34.9 Viral infection, unspecified; Z20.822 Contact with and (suspected) exposure to COVID-19
CPT/HCPCS: 0241U-QW; 36415; 71045-TC-FY; 74177-TC; 80053; 81003; 83605; 83690; 85025; 86140; 99285-25; Q9967

== ENCOUNTER 2024-03-06 16:44 | Emergency (ER) | payer OTHER ==
[2024-03-06 17:11] VITALS: BP 112/79; PULSE 93; RESP 18; TEMP 98.2; BMI 33.6
[2024-03-06 19:02] LABS: BASO % 0.9 % (0-2.0); EOS % 1.4 % (0-4.5); HEMATOCRIT 35.9 % (32.4-45.2); LYMPH % 29.1 % (8-40); MCH 29.2 pg (25.7-33.7); MCHC 33.4 g/dl (32.0-36.0); MEAN CELL VOLUME 87.6 fl (80-96); MEAN PLT VOLUME 8.4 fl (7.5-11.1); MONO % 6.9 % (3.8-10.2); NEUT % 61.7 % (42.8-82.8); PLATELET COUNT 251 10^3/uL (134-434); RDW 13.3 % (11.6-15.6); WHITE BLOOD COUNT 5.6 K/mm3 (4.0-10.0)
[2024-03-06 19:08] LABS: HCG,QUALITATIVE URINE Negative
[2024-03-06 19:18] LABS: URINE APPEARANCE CLEAR; URINE BILIRUBIN NEGATIVE (NEGATIVE); URINE COLOR YELLOW; URINE GLUCOSE (UA) NEGATIVE (NEGATIVE); URINE KETONE NEGATIVE (NEGATIVE)
[2024-03-06 19:19] LABS: URINE LEUK ESTERASE TRACE (NEGATIVE); URINE NITRITE NEGATIVE (NEGATIVE); URINE PROTEIN NEGATIVE (NEGATIVE); URINE UROBILINOGEN 1 mg/dL (0.2-1.0)
[2024-03-06 19:20] LABS: EPI CELLS 8 /uL (0-25.1); HYALINE CASTS 0 /uL (0-3.1); URINE BACTERIA 134 /uL (0-1359); URINE RBC 57 /uL (0-23.9); URINE WBC 16 /uL (0-25.8)
[2024-03-06 19:23] LABS: ALBUMIN 3.4 g/dl (3.4-5.0); BLOOD UREA NITROGEN 14.2 mg/dL (7-18)
[2024-03-06 19:25] LABS: CREATININE 0.9 mg/dL (0.55-1.3)
[2024-03-06 19:27] LABS: BILIRUBIN,TOTAL 0.6 mg/dL (0.2-1); TOT PROT 7.9 g/dl (6.4-8.2)
[2024-03-06 19:56] LABS: HIV INTERPRETATION NEGATIVE (NEGATIVE)
[2024-03-06] MEDS ORDERED: cefTRIAXone SODIUM 1 GM VIAL ONE (20:26)
[2024-03-06] MEDS ORDERED: LIDOCAINE HCL 1%, 10 MG/ML (20ML VIAL) ONE (20:27)
== END 2024-03-06 20:39 | disposition home or self-care (01) ==
LOC: JER 16:44
DX: N89.8 Other specified noninflammatory disorders of vagina (principal); N94.10 Unspecified dyspareunia; M54.50 Low back pain, unspecified; R10.30 Lower abdominal pain, unspecified; N73.9 Female pelvic inflammatory disease, unspecified
CPT/HCPCS: 36415; 76830-TC; 80053; 81003; 84703; 85025; 86780; 86803; 87070; 87086; 87205; 87389; 87491; 87591; 87661; 99284-25

== ENCOUNTER 2025-04-03 11:38 | Emergency (ER) | payer OTHER ==
[2025-04-03 11:46] VITALS: RESP 20; BMI 36.5
[2025-04-03] MEDS: ACETAMINOPHEN 1000 MG/100 ML BAG IVPB ONE (13:05)
[2025-04-03] MEDS: SODIUM CHLORIDE 0.9% 500 ML INFUS.BAG IV ONE (13:05)
[2025-04-03] MEDS: FAMOTIDINE 20 MG/50 ML IVPB 20 MG/50 ML MG IVPB ONE (13:05)
[2025-04-03] MEDS ORDERED: ACETAMINOPHEN INJECTION 100 ML ONE (13:10)
[2025-04-03] MEDS ORDERED: ONDANSETRON 4 MG/2 ML VIAL ONE (13:10)
[2025-04-03] MEDS ORDERED: FAMOTIDINE 20 MG/50 ML IVPB 20 MG/50 ML MG IVPB ONE (13:11)
[2025-04-03 13:18] LABS: EPI CELLS >36 /uL (0-25.1); HYALINE CASTS 0 /uL (0-3.1); PH,URINE 5.5 (5.0-8.0); URINE APPEARANCE CLEAR; URINE BACTERIA 770 /uL (0-1359); URINE BILIRUBIN NEGATIVE (NEGATIVE); URINE COLOR YELLOW; URINE GLUCOSE (UA) NEGATIVE (NEGATIVE); URINE KETONE NEGATIVE (NEGATIVE); URINE LEUK ESTERASE 1+ (NEGATIVE); URINE NITRITE NEGATIVE (NEGATIVE); URINE PROTEIN NEGATIVE (NEGATIVE); URINE RBC 26 /uL (0-23.9); URINE WBC 60 /uL (0-25.8)
[2025-04-03 13:40] LABS: THROAT:GRP A STREP DETECTED (NOTDETECTED)
[2025-04-03] MEDS: ONDANSETRON 4 MG/2 ML VIAL IVPUSH ONE (13:48)
[2025-04-03 13:52] LABS: ABSOLUTE IMMATURE GRANULOCYTES 0.04 x10^3/uL (0.0-0.031); BASOPHILS # 0.05 x10^3/uL (0.01-0.08); EOSINOPHIL % 0.6 % (0.7-5.8); EOSINOPHILS # 0.05 x10^3/uL (0.04-0.36); HEMATOCRIT 39.3 % (34.1-44.9); HEMOGLOBIN 12.5 g/dL (11.2-15.7); MCHC 31.8 g/dl (32.2-35.5); MEAN CELL VOLUME 90.3 fl (79.4-94.8); MEAN PLT VOLUME 11.1 fl (9.4-12.3); MONOCYTE # 0.68 x10^3/uL (0.24-0.86); MONOCYTE % 7.6 % (4.7-12.5); PLATELET COUNT 234 x10^3/uL (182-369); RDW 13.8 % (12.3-16.6)
[2025-04-03 14:24] LABS: CHLORIDE 105 mmol/L (98-107); SODIUM 135 mmol/L (136-145)
[2025-04-03 14:26] LABS: CALCIUM 9.5 mg/dL (8.5-10.1); GLUCOSE,RANDOM 81 mg/dL (74-106)
[2025-04-03 14:27] LABS: ALBUMIN 3.1 g/dl (3.4-5.0); BLOOD UREA NITROGEN 13.8 mg/dL (7-18); CO2 27 mmol/L (21-32)
[2025-04-03 14:29] LABS: CREATININE 0.8 mg/dL (0.55-1.3)
[2025-04-03 14:31] LABS: BILIRUBIN,TOTAL 1.2 mg/dL (0.2-1); TOT PROT 8.4 g/dl (6.4-8.2)
[2025-04-03] MEDS ORDERED: PENICILLIN G BENZATHINE 1,200,000 UNIT/2 ML PFS IM ONE (14:43)
[2025-04-03] MEDS ORDERED: DEXAMETHASONE SOD PHOSPHATE 10 MG/1 ML VIAL ONE (14:43)
[2025-04-03 14:48] LABS: ALK PHOS 83 U/L (45-117); ANION GAP 3 mmol/L (4-13); POTASSIUM 9.6 mmol/L (3.5-5.1); SGOT/AST 123 U/L (15-37); SGPT/ALT 47 U/L (13-61)
[2025-04-03] MEDS: DEXAMETHASONE SOD PHOSPHATE 10 MG/1 ML VIAL PO ONE (14:55)
[2025-04-03] MEDS: PENICILLIN G BENZATHINE 1,200,000 UNIT/2 ML PFS IM ONE (14:55)
[2025-04-03 16:38] LABS: POTASSIUM 4.5 mmol/L (3.5-5.1)
[2025-04-03 16:40] LABS: CALCIUM 8.8 mg/dL (8.5-10.1)
[2025-04-03 16:43] LABS: CREATININE 0.6 mg/dL (0.55-1.3)
[2025-04-03 16:45] LABS: BLOOD UREA NITROGEN 12.6 mg/dL (7-18); TOT PROT 6.8 g/dl (6.4-8.2)
[2025-04-03 16:56] VITALS: BP 125/77; PULSE 76
[2025-04-03 16:57] VITALS: TEMP 97.8
[2025-04-03 17:05] LABS: HCV DIAGNOSTIC IN-HOUSE W/RFLX NON-REACTIVE (NONREACTIVE)
[2025-04-03 17:08] LABS: HIV INTERPRETATION NEGATIVE (NEGATIVE)
== END 2025-04-03 17:36 | disposition home or self-care (01) ==
LOC: JER 11:38
PROC: 3E033GC Introduction of Other Therapeutic Substance into Peripheral Vein, Percutaneous Approach (ICD-10-PCS; principal; 2025-04-03)
PROC: 3E033NZ Introduction of Analgesics, Hypnotics, Sedatives into Peripheral Vein, Percutaneous Approach (ICD-10-PCS; 2025-04-03)
PROC: 3E02329 Introduction of Other Anti-infective into Muscle, Percutaneous Approach (ICD-10-PCS; 2025-04-03)
DX: J03.00 Acute streptococcal tonsillitis, unspecified (principal); R51.9 Headache, unspecified; R13.10 Dysphagia, unspecified; M79.10 Myalgia, unspecified site; R68.83 Chills (without fever); R10.13 Epigastric pain; R10.33 Periumbilical pain; R11.0 Nausea; M25.50 Pain in unspecified joint
CPT/HCPCS: 0241U-QW; 36415; 80053; 81003; 83690; 85025; 86803; 87086; 87389; 87651; 99284-25; J0131; J1100